=== PATIENT | female | born 1945 | race Caucasian/White ===

== ENCOUNTER 2016-08-10 19:19 | Outpatient (CLI) | payer MEDICARE, MEDICAID | END 2016-08-10 19:20 | disposition home or self-care (01) | DX: R60.0 Localized edema (principal) ==

== ENCOUNTER 2016-08-21 13:21 | Observation (INO) | payer MEDICARE, MEDICAID ==
[2016-08-21] MEDS ORDERED: IPRATROPIUM/ALBUTEROL 3 ML NEB INH STA (14:04)
[2016-08-21] MEDS ORDERED: DEXAMETHASONE 10 MG/ML VIAL IVP STA (14:05)
[2016-08-21] MEDS ORDERED: DEXAMETHASONE 10 MG/ML VIAL ONE (14:07)
[2016-08-21] MEDS ORDERED: IPRATROPIUM/ALBUTEROL 3 ML NEB INH ONE (14:12)
[2016-08-21] MEDS ORDERED: ALBUTEROL NEB 2.5 MG/3 ML INH STA ×2 (14:36→15:42)
[2016-08-21] MEDS ORDERED: ALBUTEROL NEB 2.5 MG/3 ML INH ONE ×2 (14:47→15:53)
[2016-08-21] MEDS ORDERED: cefTRIAXone 1 GM in SODIUM CHLORIDE 0.9% MINIBAG 100 ML IV STA (16:28)
[2016-08-21] MEDS ORDERED: cefTRIAXone 1 GM VIAL ONE (16:44)
[2016-08-21] MEDS ORDERED: SODIUM CHLORIDE FLUSH 0.9% 10 ML SYRINGE IVP PRN ×2 (16:58→18:14)
[2016-08-21] MEDS ORDERED: ACETAMINOPHEN 325 MG TABLET PO PRN ×2 (16:58→18:14)
[2016-08-21] MEDS ORDERED: ONDANSETRON ODT 4 MG TABLET TL PRN ×2 (16:58→18:14)
[2016-08-21] MEDS ORDERED: SODIUM CHLORIDE 0.9% 1,000 ML IV SCH (17:00)
[2016-08-21] MEDS: SODIUM CHLORIDE 0.9% 1,000 ML IV SCH (19:08)
[2016-08-21] MEDS ORDERED: BENZONATATE 100 MG CAPSULE PO PRN (19:18)
[2016-08-21] MEDS ORDERED: OLANZapine ODT 5 MG TABLET TL SCH (20:00)
[2016-08-21] MEDS: SODIUM CHLORIDE FLUSH 0.9% 10 ML SYRINGE IVP SCH (21:35)
[2016-08-21] MEDS: ATORVASTATIN 40 MG TABLET PO SCH (21:35)
[2016-08-21] MEDS: traZODone 50 MG TABLET PO SCH (21:35)
[2016-08-21] MEDS: OLANZapine ODT 5 MG TABLET TL SCH (21:35)
[2016-08-21] MEDS: guaiFENesin 600 MG TABLET PO SCH (21:35)
[2016-08-21] MEDS ORDERED: SODIUM CHLORIDE FLUSH 0.9% 10 ML SYRINGE IVP SCH (22:00)
[2016-08-22] MEDS: IPRATROPIUM/ALBUTEROL 3 ML NEB INH PRN ×5 (04:45→20:40)
[2016-08-22] MEDS: SODIUM CHLORIDE FLUSH 0.9% 10 ML SYRINGE IVP SCH ×3 (06:18→20:30)
[2016-08-22] MEDS: SODIUM CHLORIDE 0.9% 1,000 ML IV SCH ×2 (08:14→20:29)
[2016-08-22] MEDS ORDERED: POLYETHYLENE GLYCOL 3350 17 GM PACKET PO SCH (09:00)
[2016-08-22] MEDS ORDERED: TIOTROPIUM INHALER INH SCH (09:00)
[2016-08-22] MEDS ORDERED: lamoTRIgine 100 MG TABLET PO SCH (09:00)
[2016-08-22] MEDS ORDERED: ENOXAPARIN 30 MG/0.3 ML SYRINGE SUBQ SCH (09:00)
[2016-08-22] MEDS ORDERED: FAMOTIDINE 20 MG TABLET PO SCH (09:00)
[2016-08-22] MEDS: methylPREDNISolone SUCCINATE 125 MG/2 ML VIAL IVP SCH ×3 (09:01→20:29)
[2016-08-22] MEDS: SERTRALINE 50 MG TABLET PO SCH (09:05)
[2016-08-22] MEDS: FAMOTIDINE 20 MG TABLET PO SCH (09:06)
[2016-08-22] MEDS: MULTIVITAMIN W/MINERALS TABLET PO SCH (09:06)
[2016-08-22] MEDS: guaiFENesin 600 MG TABLET PO SCH ×2 (09:06→20:29)
[2016-08-22] MEDS: DIVALPROEX ER 250 MG TABLET PO SCH (09:06)
[2016-08-22] MEDS: lamoTRIgine 100 MG TABLET PO SCH (09:07)
[2016-08-22] MEDS: ENOXAPARIN 30 MG/0.3 ML SYRINGE SUBQ SCH (09:07)
[2016-08-22] MEDS: cefTRIAXone 2 GM in SODIUM CHLORIDE 0.9% MINIBAG 100 ML IV SCH (09:08)
[2016-08-22] MEDS: OLANZapine ODT 5 MG TABLET TL SCH (10:07)
[2016-08-22] MEDS: BUDESONIDE 0.5 MG/2 ML NEB INH SCH ×2 (11:10→20:40)
[2016-08-22] MEDS: POLYETHYLENE GLYCOL 3350 17 GM PACKET PO SCH (15:18)
[2016-08-22] MEDS: ATORVASTATIN 40 MG TABLET PO SCH (20:30)
[2016-08-22] MEDS: traZODone 50 MG TABLET PO SCH (20:30)
[2016-08-23] MEDS: SODIUM CHLORIDE 0.9% 1,000 ML IV SCH (06:45)
[2016-08-23] MEDS: methylPREDNISolone SUCCINATE 125 MG/2 ML VIAL IVP SCH (06:46)
[2016-08-23] MEDS: SODIUM CHLORIDE FLUSH 0.9% 10 ML SYRINGE IVP SCH (06:46)
[2016-08-23] MEDS ORDERED: TIOTROPIUM INHALER INH SCH (07:00)
[2016-08-23] MEDS: BUDESONIDE 0.5 MG/2 ML NEB INH SCH (08:11)
[2016-08-23] MEDS: IPRATROPIUM/ALBUTEROL 3 ML NEB INH PRN (08:11)
[2016-08-23] MEDS ORDERED: SENNA 8.6 MG TABLET PO SCH (09:00)
[2016-08-23] MEDS ORDERED: DOCUSATE SODIUM 250 MG CAPSULE PO SCH (09:00)
[2016-08-23] MEDS: cefTRIAXone 2 GM in SODIUM CHLORIDE 0.9% MINIBAG 100 ML IV SCH (09:20)
[2016-08-23] MEDS: ENOXAPARIN 30 MG/0.3 ML SYRINGE SUBQ SCH (09:22)
[2016-08-23] MEDS: POLYETHYLENE GLYCOL 3350 17 GM PACKET PO SCH (09:22)
[2016-08-23] MEDS: MULTIVITAMIN W/MINERALS TABLET PO SCH (09:23)
[2016-08-23] MEDS: lamoTRIgine 100 MG TABLET PO SCH (09:23)
[2016-08-23] MEDS: DIVALPROEX ER 250 MG TABLET PO SCH (09:23)
[2016-08-23] MEDS: FAMOTIDINE 20 MG TABLET PO SCH (09:24)
[2016-08-23] MEDS: guaiFENesin 600 MG TABLET PO SCH (09:24)
[2016-08-23] MEDS: SERTRALINE 50 MG TABLET PO SCH (09:24)
[2016-08-23] MEDS: OLANZapine ODT 5 MG TABLET TL SCH (09:24)
== END 2016-08-23 15:30 ==
DX: J44.0 Chronic obstructive pulmonary disease with (acute) lower respiratory infection (principal); J20.9 Acute bronchitis, unspecified; J44.1 Chronic obstructive pulmonary disease with (acute) exacerbation; F31.9 Bipolar disorder, unspecified; E78.2 Mixed hyperlipidemia; E55.9 Vitamin D deficiency, unspecified; N30.00 Acute cystitis without hematuria; R32 Unspecified urinary incontinence; R09.02 Hypoxemia; I10 Essential (primary) hypertension; Z87.891 Personal history of nicotine dependence; Z86.14 Personal history of Methicillin resistant Staphylococcus aureus infection
CPT/HCPCS: 36415; 71010; 71250; 80053; 80164; 81001; 83690; 83735; 83880; 85025; 87077; 87086; 87181; 87640; 94640; 96365; 96366; 96372; 96375; 96376; 99284; 99285; A9270; G0378; J1650; J7613; J7620; J7626

== ENCOUNTER 2016-08-30 14:59 | Outpatient (CLI) | payer MEDICARE, MEDICAID | END 2016-08-30 15:00 | disposition home or self-care (01) | DX: Z86.14 Personal history of Methicillin resistant Staphylococcus aureus infection (principal) ==

== ENCOUNTER 2016-08-30 15:22 | Outpatient (CLI) | payer MEDICARE, MEDICAID | END 2016-08-30 15:23 | disposition home or self-care (01) | DX: M17.11 Unilateral primary osteoarthritis, right knee (principal); M25.461 Effusion, right knee; Z86.14 Personal history of Methicillin resistant Staphylococcus aureus infection ==

== ENCOUNTER 2016-10-22 09:15 | Outpatient (CLI) | payer MEDICARE, MEDICAID | END 2016-10-22 09:16 | disposition critical access hospital (66) | DX: N39.0 Urinary tract infection, site not specified (principal); W07.XXXA Fall from chair, initial encounter; Y92.129 Unspecified place in nursing home as the place of occurrence of the external cause | CPT/HCPCS: A0425; A0429 ==

== ENCOUNTER 2016-10-22 09:32 | Emergency (ER) | payer MEDICARE, MEDICAID ==
[2016-10-22] MEDS ORDERED: ALBUTEROL NEB 2.5 MG/3 ML INH STA (09:53)
[2016-10-22] MEDS ORDERED: ALBUTEROL NEB 2.5 MG/3 ML INH ONE (10:24)
[2016-10-22] MEDS ORDERED: levoFLOXacin 250 MG TABLET PO STA (12:52)
[2016-10-22] MEDS ORDERED: predniSONE 20 MG TABLET PO STA (12:53)
[2016-10-22] MEDS ORDERED: predniSONE 20 MG TABLET ONE (13:17)
[2016-10-22] MEDS ORDERED: levoFLOXacin 250 MG TABLET PO ONE (13:17)
== END 2016-10-22 15:03 | disposition home or self-care (01) ==
DX: M25.561 Pain in right knee (principal); W01.0XXA Fall on same level from slipping, tripping and stumbling without subsequent striking against object, initial encounter; N30.00 Acute cystitis without hematuria; J44.1 Chronic obstructive pulmonary disease with (acute) exacerbation; J18.9 Pneumonia, unspecified organism; E78.00 Pure hypercholesterolemia, unspecified; Z87.891 Personal history of nicotine dependence
CPT/HCPCS: 71020; 71250; 73562; 81001; 87077; 87086; 87181; 94640; 99283; 99284; A9270; J7512; J7613

== ENCOUNTER 2016-10-31 22:30 | Inpatient (IN) | payer MEDICARE, MEDICAID ==
[2016-10-31] MEDS ORDERED: ACETAMINOPHEN 325 MG TABLET PO STA (22:54)
[2016-10-31] MEDS ORDERED: SODIUM CHLORIDE 0.9% 1,000 ML IV ONE (22:54)
[2016-10-31] MEDS ORDERED: IPRATROPIUM/ALBUTEROL 3 ML NEB INH STA (22:54)
[2016-10-31] MEDS ORDERED: ACETAMINOPHEN 500 MG TABLET PO ONE (23:02)
[2016-10-31] MEDS ORDERED: IPRATROPIUM/ALBUTEROL 3 ML NEB INH ONE ×2 (23:23→23:55)
[2016-11-01] MEDS ORDERED: PIPERACILLIN/TAZOBACTAM 3.375 GM in SODIUM CHLORIDE 0.9% MINIBAG 100 ML IV STA (00:20)
[2016-11-01] MEDS ORDERED: SODIUM CHLORIDE 0.9% MINIBAG 100 ML IV ONE (00:33)
[2016-11-01] MEDS ORDERED: VANCOMYCIN INJ 1 GM in SODIUM CHLORIDE 0.9% 250 ML IV STA (00:51)
[2016-11-01] MEDS ORDERED: VANCOMYCIN 1 GM VIAL ONE (01:06)
[2016-11-01] MEDS ORDERED: ONDANSETRON 4 MG/2 ML VIAL IVP PRN (02:03)
[2016-11-01] MEDS ORDERED: ALBUTEROL NEB 2.5 MG/3 ML INH PRN (02:34)
[2016-11-01] MEDS ORDERED: IOPAMIDOL-300 100 ML VIAL IVP ONE (02:50)
[2016-11-01] MEDS ORDERED: SODIUM CHLORIDE 0.9% 1,000 ML IV SCH ×2 (03:00)
[2016-11-01] MEDS ORDERED: SODIUM CHLORIDE 0.9% 1,000 ML IV ONE (03:03)
[2016-11-01] MEDS: IPRATROPIUM/ALBUTEROL 3 ML NEB INH SCH ×6 (03:10→21:35)
[2016-11-01] MEDS: SODIUM CHLORIDE 0.9% 1,000 ML IV SCH ×2 (03:38→14:15)
[2016-11-01] MEDS: SODIUM CHLORIDE FLUSH 0.9% 10 ML SYRINGE IVP PRN (03:39)
[2016-11-01] MEDS ORDERED: A & D OINTMENT 5 GM PACKET TOP ONE (04:03)
[2016-11-01] MEDS: PIPERACILLIN/TAZOBACTAM 4.5 GM in SODIUM CHLORIDE 0.9% MINIBAG 100 ML IV SCH ×3 (06:07→18:05)
[2016-11-01] MEDS: methylPREDNISolone SUCCINATE 40 MG/ML VIAL IVP SCH ×3 (06:07→21:37)
[2016-11-01] MEDS: SODIUM CHLORIDE FLUSH 0.9% 10 ML SYRINGE IVP SCH ×3 (06:08→21:37)
[2016-11-01] MEDS ORDERED: VANCOMYCIN PER PHARMACY 1 GM in SODIUM CHLORIDE 0.9% 250 ML IV PRN (06:38)
[2016-11-01] MEDS ORDERED: VANCOMYCIN PER PHARMACY 1 GM in SODIUM CHLORIDE 0.9% 250 ML IV SCH (07:00)
[2016-11-01] MEDS: ENOXAPARIN 40 MG/0.4 ML SYRINGE SUBQ SCH (09:57)
[2016-11-01] MEDS: POLYETHYLENE GLYCOL 3350 17 GM PACKET PO SCH (09:58)
[2016-11-01] MEDS: FAMOTIDINE 20 MG/50 ML 50 ML IV SCH (09:58)
[2016-11-01] MEDS ORDERED: VANCOMYCIN INJ 1 GM in SODIUM CHLORIDE 0.9% 250 ML IV SCH (19:00)
[2016-11-01] MEDS ORDERED: clonazePAM 0.5 MG TABLET PO PRN (21:00)
[2016-11-01] MEDS: lamoTRIgine 100 MG TABLET PO SCH (21:36)
[2016-11-01] MEDS: DOCUSATE SODIUM 100 MG CAPSULE PO PRN (21:36)
[2016-11-01] MEDS: traZODone 50 MG TABLET PO PRN (21:36)
[2016-11-01] MEDS: DIVALPROEX DR 250 MG TABLET PO SCH (21:37)
[2016-11-02] MEDS: SODIUM CHLORIDE 0.9% 1,000 ML IV SCH ×2 (00:01→06:51)
[2016-11-02] MEDS: PIPERACILLIN/TAZOBACTAM 4.5 GM in SODIUM CHLORIDE 0.9% MINIBAG 100 ML IV SCH ×3 (00:02→12:12)
[2016-11-02] MEDS: IPRATROPIUM/ALBUTEROL 3 ML NEB INH SCH ×6 (01:32→20:53)
[2016-11-02] MEDS: methylPREDNISolone SUCCINATE 40 MG/ML VIAL IVP SCH ×3 (05:48→21:59)
[2016-11-02] MEDS: SODIUM CHLORIDE FLUSH 0.9% 10 ML SYRINGE IVP SCH ×3 (05:48→20:13)
[2016-11-02] MEDS: POLYETHYLENE GLYCOL 3350 17 GM PACKET PO SCH (09:56)
[2016-11-02] MEDS: ENOXAPARIN 40 MG/0.4 ML SYRINGE SUBQ SCH (09:56)
[2016-11-02] MEDS: FAMOTIDINE 20 MG/50 ML 50 ML IV SCH (09:56)
[2016-11-02] MEDS: THIAMINE 100 MG TABLET PO SCH (09:57)
[2016-11-02] MEDS: SENNA 8.6 MG TABLET PO SCH (09:57)
[2016-11-02] MEDS: SERTRALINE 50 MG TABLET PO SCH (09:57)
[2016-11-02] MEDS: DIVALPROEX DR 250 MG TABLET PO SCH ×2 (09:57→20:16)
[2016-11-02] MEDS: MULTIVITAMIN TABLET PO SCH (09:57)
[2016-11-02] MEDS: DOCUSATE SODIUM 250 MG CAPSULE PO SCH (09:58)
[2016-11-02] MEDS: DOCUSATE SODIUM 100 MG CAPSULE PO PRN ×2 (09:58→20:16)
[2016-11-02] MEDS: LACTULOSE 10 GM /15 ML UDC PO SCH ×2 (09:58→20:23)
[2016-11-02] MEDS: NEUTRA-PHOS 250 MG TABLET PO SCH ×2 (10:14→12:12)
[2016-11-02] MEDS ORDERED: NEUTRA-PHOS 250 MG TABLET PO ONE (11:24)
[2016-11-02] MEDS: ACETAMINOPHEN 325 MG TABLET PO PRN ×2 (12:12→22:25)
[2016-11-02] MEDS: ceFAZolin 1 GM in SODIUM CHLORIDE 0.9% MINIBAG 100 ML IV SCH (19:23)
[2016-11-02] MEDS: ATORVASTATIN 40 MG TABLET PO SCH (20:16)
[2016-11-02] MEDS: lamoTRIgine 100 MG TABLET PO SCH (20:16)
[2016-11-02] MEDS: OLANZapine ODT 5 MG TABLET TL SCH (20:16)
[2016-11-02] MEDS: SODIUM CHLORIDE FLUSH 0.9% 10 ML SYRINGE IVP PRN (22:00)
[2016-11-02] MEDS: traZODone 50 MG TABLET PO PRN (22:25)
[2016-11-03] MEDS: ceFAZolin 1 GM in SODIUM CHLORIDE 0.9% MINIBAG 100 ML IV SCH ×2 (05:18→17:19)
[2016-11-03] MEDS: SODIUM CHLORIDE FLUSH 0.9% 10 ML SYRINGE IVP SCH ×3 (05:19→17:18)
[2016-11-03] MEDS: methylPREDNISolone SUCCINATE 40 MG/ML VIAL IVP SCH ×2 (05:58→14:33)
[2016-11-03] MEDS: IPRATROPIUM/ALBUTEROL 3 ML NEB INH SCH ×5 (06:10→21:00)
[2016-11-03] MEDS: MULTIVITAMIN TABLET PO SCH (07:39)
[2016-11-03] MEDS: THIAMINE 100 MG TABLET PO SCH (08:48)
[2016-11-03] MEDS: SENNA 8.6 MG TABLET PO SCH (08:48)
[2016-11-03] MEDS: DIVALPROEX DR 250 MG TABLET PO SCH ×2 (08:48→21:29)
[2016-11-03] MEDS: DOCUSATE SODIUM 100 MG CAPSULE PO PRN (08:48)
[2016-11-03] MEDS: ENOXAPARIN 40 MG/0.4 ML SYRINGE SUBQ SCH (08:49)
[2016-11-03] MEDS: FAMOTIDINE 20 MG/50 ML 50 ML IV SCH (08:49)
[2016-11-03] MEDS: SERTRALINE 50 MG TABLET PO SCH (08:49)
[2016-11-03] MEDS: POLYETHYLENE GLYCOL 3350 17 GM PACKET PO SCH (08:49)
[2016-11-03] MEDS: DOCUSATE SODIUM 250 MG CAPSULE PO SCH (08:52)
[2016-11-03] MEDS: amLODIPine 5 MG TABLET PO SCH (17:57)
[2016-11-03] MEDS: SODIUM CHLORIDE FLUSH 0.9% 10 ML SYRINGE IVP PRN (18:00)
[2016-11-03] MEDS: ATORVASTATIN 40 MG TABLET PO SCH (21:29)
[2016-11-03] MEDS: lamoTRIgine 100 MG TABLET PO SCH (21:29)
[2016-11-03] MEDS: OLANZapine ODT 5 MG TABLET TL SCH (21:30)
[2016-11-03] MEDS: guaiFENesin 600 MG TABLET PO SCH (21:32)
[2016-11-04] MEDS: SODIUM CHLORIDE FLUSH 0.9% 10 ML SYRINGE IVP PRN ×4 (00:19→08:21)
[2016-11-04] MEDS: IPRATROPIUM/ALBUTEROL 3 ML NEB INH SCH ×4 (01:45→11:30)
[2016-11-04] MEDS: ceFAZolin 1 GM in SODIUM CHLORIDE 0.9% MINIBAG 100 ML IV SCH (05:42)
[2016-11-04] MEDS: SODIUM CHLORIDE FLUSH 0.9% 10 ML SYRINGE IVP SCH ×2 (05:43→13:48)
[2016-11-04] MEDS ORDERED: predniSONE 20 MG TABLET PO SCH (08:00)
[2016-11-04] MEDS: ENOXAPARIN 40 MG/0.4 ML SYRINGE SUBQ SCH (08:20)
[2016-11-04] MEDS: FAMOTIDINE 20 MG/50 ML 50 ML IV SCH (08:20)
[2016-11-04] MEDS: POLYETHYLENE GLYCOL 3350 17 GM PACKET PO SCH (08:20)
[2016-11-04] MEDS: DOCUSATE SODIUM 250 MG CAPSULE PO SCH (08:21)
[2016-11-04] MEDS: DIVALPROEX DR 250 MG TABLET PO SCH (08:21)
[2016-11-04] MEDS: amLODIPine 5 MG TABLET PO SCH (08:21)
[2016-11-04] MEDS: MULTIVITAMIN TABLET PO SCH (08:21)
[2016-11-04] MEDS: SENNA 8.6 MG TABLET PO SCH (08:21)
[2016-11-04] MEDS: guaiFENesin 600 MG TABLET PO SCH (08:22)
[2016-11-04] MEDS: THIAMINE 100 MG TABLET PO SCH (08:22)
[2016-11-04] MEDS: SERTRALINE 50 MG TABLET PO SCH (09:32)
[2016-11-04] MEDS: LACTULOSE 10 GM /15 ML UDC PO SCH (09:32)
[2016-11-04] MEDS ORDERED: NEUTRA-PHOS 250 MG TABLET PO SCH (13:30)
[2016-11-04] MEDS ORDERED: amLODIPine 5 MG TABLET PO SCH (18:00)
== END 2016-11-04 16:08 | disposition home or self-care (01) | DRG 871 ==
DX: A41.9 Sepsis, unspecified organism (principal); R09.02 Hypoxemia; J44.9 Chronic obstructive pulmonary disease, unspecified; J96.01 Acute respiratory failure with hypoxia; J96.02 Acute respiratory failure with hypercapnia; N39.0 Urinary tract infection, site not specified; J44.1 Chronic obstructive pulmonary disease with (acute) exacerbation; B96.20 Unspecified Escherichia coli [E. coli] as the cause of diseases classified elsewhere; G40.909 Epilepsy, unspecified, not intractable, without status epilepticus; K59.00 Constipation, unspecified; I15.8 Other secondary hypertension; T38.0X5A Adverse effect of glucocorticoids and synthetic analogues, initial encounter; Y92.239 Unspecified place in hospital as the place of occurrence of the external cause; F31.9 Bipolar disorder, unspecified; E78.5 Hyperlipidemia, unspecified; Z16.24 Resistance to multiple antibiotics; Z85.3 Personal history of malignant neoplasm of breast; Z87.891 Personal history of nicotine dependence

== ENCOUNTER 2017-05-09 14:14 | Outpatient (CLI) | payer MEDICARE, MEDICAID ==
--- NOTE | 2017-05-11 12:29 | XRAY Report ---
LEFT FOOT: 05/09/2017 COMPARISON: None. INDICATION: Pain and swelling. TECHNIQUE: Three views of the left foot. FINDINGS: Anatomic alignment. No acute bone findings. There are [id number] degenerative changes of the 1st tarsometatarsal joint. There are mild degenerative changes of the proximal interphalangeal joints. No appreciable soft tissue swelling. IMPRESSION: [id number] DEGENERATIVE CHANGES OF THE 1ST TARSOMETATARSAL JOINT. MILD DEGENERATIVE CHANGE OF THE PROXIMAL INTERPHALANGEAL JOINTS. JOB #: [id number] EXT JOB #: [id number] MTDD
== END 2017-05-09 14:15 | disposition home or self-care (01) ==
LOC: DI 14:14
PROVIDERS: ATTEND Podiatrist
DX: M19.072 Primary osteoarthritis, left ankle and foot (principal)

== ENCOUNTER 2017-10-05 12:41 | Outpatient (CLI) | payer MEDICARE, MEDICAID ==
--- NOTE | 2017-10-05 14:11 | CT Report ---
CT CHEST WITHOUT CONTRAST: 10/05/2017 CLINICAL INDICATION: Followup pulmonary nodule. COMPARISON: 11/01/2016. TECHNIQUE: Axial CT images of the chest were obtained without intravenous contrast. FINDINGS: The heart and great vessels demonstrate atherosclerotic calcification. No hilar or mediastinal lymphadenopathy is appreciated, given the lack of IV contrast. The lungs demonstrate dependent atelectasis. The previously noted 5 mm nodule in the posterior right lower lobe has resolved. No new pulmonary nodule or mass lesion is appreciated. No effusion or pneumothorax is present. Osseous structures demonstrate degenerative changes. Limited evaluation of the upper abdominal structures demonstrates normal adrenal glands. IMPRESSION: RESOLUTION OF PREVIOUSLY SEEN NODULE IN THE POSTERIOR RIGHT LOWER LOBE. In accordance with CT protocol optimization, one or more of the following dose reduction techniques were utilized for this exam: automated exposure control, adjustment of mA and/or KV based on patient size, or use of iterative reconstructive technique. TD: 10/05/2017 14:10
== END 2017-10-05 12:42 | disposition home or self-care (01) ==
LOC: DI 12:41
PROVIDERS: ATTEND Internal Medicine
DX: R91.1 Solitary pulmonary nodule (principal)
CPT/HCPCS: 71250

== ENCOUNTER 2017-11-23 22:29 | Outpatient (CLI) | payer MEDICARE, MEDICAID | END 2017-11-23 22:30 | disposition critical access hospital (66) | LOC: EMS 22:29 | PROVIDERS: ATTEND Surgery | DX: R50.9 Fever, unspecified (principal); R05 Cough | CPT/HCPCS: A0425; A0429 ==

== ENCOUNTER 2017-11-23 22:50 | Inpatient (IN) | payer MEDICARE, MEDICAID ==
[2017-11-23] MEDS ORDERED: SODIUM CHLORIDE 0.9% 1,000 ML IV ONE (22:56)
[2017-11-23] MEDS ORDERED: ACETAMINOPHEN 1,000 MG/100 ML 100 ML IV STA (22:56)
[2017-11-23 23:25] LABS: BASOPHILS # (AUTO) 0.1 10^3/uL (0.0-0.1); BASOPHILS % (AUTO) 0.4 %; EOSINOPHILS # (AUTO) 0.1 10^3/uL (0.0-0.7); EOSINOPHILS % (AUTO) 0.4 %; HGB - HEMOGLOBIN 13.6 g/dL (12.0-16.0); MEAN CORPUSCULAR HEMOGLOBIN 29.6 pg (27.0-31.0); MEAN CORPUSCULAR HGB CONC 32.4 g/dL (32.0-36.0); MEAN CORPUSCULAR VOLUME 91.4 fL (81.0-99.0); MONOCYTES # (AUTO) 0.6 10^3/uL (0.0-1.0); MONOCYTES % (AUTO) 4.3 %; NEUTROPHILS # (AUTO) 12.8 10^3/uL (1.5-6.6); NEUTROPHILS % (AUTO) 87.9 %; PLT - PLATELET COUNT 151 10^3/uL (130-450); RED CELL DISTRIBUTION WIDTH 15.7 % (12.0-15.0); WHITE BLOOD COUNT 14.6 x10^3/uL (4.8-10.8)
[2017-11-23] MEDS ORDERED: PIPERACILLIN/TAZOBACTAM 3.375 GM in SODIUM CHLORIDE 0.9% MINIBAG 100 ML IV STA (23:33)
[2017-11-23 23:37] LABS: ALBUMIN 4.4 g/dL (3.2-5.5); ALBUMIN/GLOBULIN RATIO 1.5 (1.0-2.2); BILIRUBIN,TOTAL 0.5 mg/dL (0.2-1.0); CALCIUM 9.5 mg/dL (8.5-10.3); CREATININE 0.9 mg/dL (0.4-1.0); TOTAL PROTEIN 7.3 g/dL (6.7-8.2)
--- NOTE | 2017-11-23 23:41 | XRAY Report ---
EXAM: CHEST RADIOGRAPHY EXAM DATE: 11/23/2017 11:27 PM. CLINICAL HISTORY: Fever, cough. COMPARISON: 10/31/2016. TECHNIQUE: 1 view. FINDINGS: Lungs/Pleura: Possible pulmonary vascular congestion. Interstitial infiltrate also possible. No alveo lar consolidation or pleural effusion seen. No pneumothorax. Mediastinum: Rotated. Within exam limitations, heart appears mildly enlarged. Other: Status post left mastectomy. Degenerative joint disease and bony proliferation about the shoul ders. IMPRESSION: 1. Rotated exam with mild cardiomegaly and possible pulmonary vascular congestion. 2. Mild interstitial infiltrate also possible. [facility] Referring Provider Line: [phone] SITE ID: [id number]
--- NOTE | 2017-11-23 23:41 | XRAY Preliminary Report ---
Exam: XR CHEST 1 VIEW X-RAY IMPRESSION: 1. Rotated exam with mild cardiomegaly and possible pulmonary vascular congestion. 2. Mild interstitial infiltrate also possible. [facility] SITE ID: [id number]
[2017-11-23 23:47] LABS: BILIRUBIN,URINE NEGATIVE (NEGATIVE); GLUCOSE, URINE (UA) NEGATIVE (NEGATIVE); KETONES,URINE (UA) NEGATIVE (NEGATIVE); LEUKOCYTE ESTERASE, URINE NEGATIVE (NEGATIVE); NITRITE,URINE NEGATIVE (NEGATIVE); OCCULT BLOOD,URINE SMALL (NEGATIVE); PROTEIN,URINE 30 mg/dL (NEGATIVE); UROBILINOGEN,URINE 0.2 (NORMAL) E.U./dL (NORMAL)
[2017-11-23 23:48] LABS: CLARITY,URINE CLEAR (CLEAR)
[2017-11-23 23:53] LABS: BACTERIA,URINE Rare /HPF (None Seen); SQUAMOUS EPITHELIAL CELL,UR MOD Squamous (<= Few)
--- NOTE | 2017-11-24 00:36 | ED Physician Documentation ---
History of Present Illness - Stated complaint Stated Complaint: SOA - Chief complaint Chief Complaint: Resp - History obtained from History obtained from: EMS - History of Present Illness Timing: Today - Additonal information Additional information: Patient is a 72 year old demented patient who is was brought in by ems for altered mental status. according to ems, the [facility] at the [facility] stated that the patient was more confused than normal and patient had a productive cough. ems was contacted and the when they arrived patient was hypoxic, febrile to 103 and with a productive cough. 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 : Incontinence HEENT: Other Psych: Bipolar disorder Musculoskeletal: None Derm: None - Past Surgical History Past Surgical History: Yes /PHOTOGRAPHIC EQUIPMENT ASSEMBLER: Mastectomy - Present Medications Home Medications: Ambulatory Orders Medication Instructions Recorded Confirmed Albuterol Sulfate [Proair Hfa 2 puffs INH Q4H PRN #1 inhaler 03/30/16 11/24/17 Inhaler] Atorvastatin Calcium [Lipitor] 40 mg PO DAILY 03/30/16 11/24/17 Ergocalciferol [Vitamin D2] 50,000 unit PO TU 03/30/16 11/24/17 Erythromycin Base [Erythromycin 1 applic OP TID PRN 03/30/16 11/24/17 Ophthalmic Ointment] Lactulose [Generlac] 20 gm PO DAILY 03/30/16 11/24/17 Mirabegron [Myrbetriq] 25 mg PO DAILY 03/30/16 11/24/17 Multivit with Calcium,Iron,Min 1 each PO DAILY 03/30/16 11/24/17 [Multiple Vitamins For Women] Olanzapine [Zyprexa] 20 mg PO DAILY PM 03/30/16 11/24/17 Thiamine [Vitamin B-1] 100 mg PO DAILY 03/30/16 11/24/17 Tiotropium [place] [Spiriva] 18 mcg IH DAILY 03/30/16 11/24/17 lamoTRIgine [LaMICtal] 25 mg PO BID 03/30/16 11/24/17 traZODone [Desyrel] 25 - 50 mg PO QPM PRN 03/30/16 11/24/17 Ascorbic Acid [Vitamin C] 2,000 mg PO DAILY 11/01/16 11/24/17 Cranberry Fruit Concentrate 900 mg PO QPM 11/01/16 11/24/17 [Cranberry] Divalproex Dr [Depakote Dr] 500 mg PO BID 11/01/16 11/24/17 Mineral Oil/Hydrophil Petrolat 1 applic TOP PRN PRN 11/01/16 11/24/17 [Aquaphor Ointment] Vitamin E Acetate [Vitamin E] 400 unit PO DAILY 11/01/16 11/24/17 Docusate Sodium 250Mg Capsule 250 - 500 mg PO DAILY #30 capsule 11/04/16 [Colace 250Mg Capsule] Polyethylene Glycol 3350 [Miralax] 17 gm PO DAILY #30 packet 11/04/16 11/24/17 Acetaminophen 500 mg PO PRN PRN 11/24/17 Amlodipine Besylate 10 mg PO ACHS 11/24/17 Aspirin 81 mg PO DAILY 11/24/17 Fluticasone/Salmeterol [Advair 1 puffs INH BID 11/24/17 250-50 Diskus] Godfrey-3/Dha/Epa/Fish Oil [Fish Oil 1,000 mg PO TID 11/24/17 11/24/17 1,000 mg Softgel] - Allergies Allergies/Adverse Reactions: Allergies Allergy/AdvReac Type Severity Reaction Status Date / Time diazepam Allergy Unknown Unknown Verified 11/23/17 22:57 hydrocodone Allergy Unknown Unknown Verified 11/23/17 22:57 lithium AdvReac Mild Unknown Verified 11/23/17 22:57 - Social History Does the pt smoke?: No Smoking Status: Never smoker Does the pt drink ETOH?: No Does the pt have substance abuse?: No - Immunizations Immunizations are current?: Yes - POLST Patient has POLST: Yes PD ED PE NORMAL - Vitals Vital signs reviewed: Yes - Neck Neck: No JVD - Abdomen Abdomen: Non distended - Derm Derm: No rash - Extremities Extremities: No edema PD ED PE EXPANDED - General General: Disheveled, poorly kept, Other (ill appearing) - HEENT HEENT: Dry mucous membranes - Cardiac Cardiac: Tachy - Respiratory Respiratory: Accessory mm use, Rhonchi - GCS Eye Opening: To Pain Motor: Localizes to Pain Verbal: Confused Total: 11 Results - Vitals Vitals: Vital Signs - 24 hr 11/23/17 11/23/17 11/24/17 22:51 23:19 00:32 Temperature 37.3 C 38.2 C H Heart Rate 118 H 109 H Respiratory 25 H 25 H Rate Blood Pressure 162/101 H 138/96 H O2 Saturation 91 L 95 Oxygen O2 Source Nasal cannula Oxygen Flow Rate 5 - EKG (time done) 2314 Rate: Rate (enter#) (122) Rhythm: Sinus tachycardia [place]: Anterior hemiblock Intervals: RBBB 2353 Rate: Rate (enter#) (113) Rhythm: Sinus tachycardia [place]: LAD, Anterior hemiblock Intervals: RBBB QRS: LVH Ischemia: ST depression Compare to prior EKG: Unchanged from prior EKG - Labs Labs: Laboratory Tests 11/23/17 11/23/17 11/23/17 23:15 23:15 23:15 WBC 14.6 H RBC 4.60 Hgb 13.6 Hct 42.0 MCV 91.4 MCH 29.6 MCHC 32.4 RDW 15.7 H Plt Count 151 MPV 7.0 L Neut # 12.8 H Lymph # 1.0 L [place] # 0.6 Eos # 0.1 Baso # 0.1 Absolute Nucleated RBC 0.00 Nucleated RBC % 0.0 Sodium 140 Potassium 4.2 Chloride 102 Carbon Dioxide 26 Anion Gap 12.0 BUN 23 H Creatinine 0.9 Estimated GFR (MDRD) 61 L Glucose 191 H Lactic Acid Calcium 9.5 Total Bilirubin 0.5 AST 24 ALT 14 Alkaline Phosphatase 80 Troponin I < 0.04 B-Natriuretic Peptide Total Protein 7.3 Albumin 4.4 Globulin 2.9 Albumin/Globulin Ratio 1.5 Lipase 22 Urine Color Urine Clarity Urine pH Ur Specific Jesse Urine Protein Urine Glucose (UA) Urine Ketones Urine Occult Blood Urine Nitrite Urine Bilirubin Urine Urobilinogen Ur Leukocyte Esterase Urine RBC Urine WBC Ur Squamous Epith Cells Urine Bacteria Ur Microscopic Review Urine Culture Comments Influenza A (Rapid) Influenza B (Rapid) 11/23/17 11/23/17 11/23/17 23:15 23:15 23:23 WBC RBC Hgb Hct MCV MCH MCHC RDW Plt Count MPV Neut # Lymph # [place] # Eos # Baso # Absolute Nucleated RBC Nucleated RBC % Sodium Potassium Chloride Carbon Dioxide Anion Gap BUN Creatinine Estimated GFR (MDRD) Glucose Lactic Acid 2.1 Calcium Total Bilirubin AST ALT Alkaline Phosphatase Troponin I B-Natriuretic Peptide 72 Total Protein Albumin Globulin Albumin/Globulin Ratio Lipase Urine Color YELLOW Urine Clarity CLEAR Urine pH 6.0 Ur Specific Jesse 1.020 Urine Protein 30 H Urine Glucose (UA) NEGATIVE Urine Ketones NEGATIVE Urine Occult Blood SMALL H Urine Nitrite NEGATIVE Urine Bilirubin NEGATIVE Urine Urobilinogen 0.2 (NORMAL) Ur Leukocyte Esterase NEGATIVE Urine RBC 6-10 H Urine WBC 0-3 Ur Squamous Epith Cells MOD Squamous H Urine Bacteria Rare Ur Microscopic Review INDICATED Urine Culture Comments NOT INDICATED Influenza A (Rapid) Influenza B (Rapid) 11/24/17 00:19 WBC RBC Hgb Hct MCV MCH MCHC RDW Plt Count MPV Neut # Lymph # [place] # Eos # Baso # Absolute Nucleated RBC Nucleated RBC % Sodium Potassium Chloride Carbon Dioxide Anion Gap BUN Creatinine Estimated GFR (MDRD) Glucose Lactic Acid Calcium Total Bilirubin AST ALT Alkaline Phosphatase Troponin I B-Natriuretic Peptide Total Protein Albumin Globulin Albumin/Globulin Ratio Lipase Urine Color Urine Clarity Urine pH Ur Specific Jesse Urine Protein Urine Glucose (UA) Urine Ketones Urine Occult Blood Urine Nitrite Urine Bilirubin Urine Urobilinogen Ur Leukocyte Esterase Urine RBC Urine WBC Ur Squamous Epith Cells Urine Bacteria Ur Microscopic Review Urine Culture Comments Influenza A (Rapid) Negative Influenza B (Rapid) Negative - Rads (name of study) chest x-ray Radiology: Final report received (pulmonary edema with possible infiltrate) PD MEDICAL DECISION MAKING - ED course Complexity details: reviewed old records, reviewed results, re-evaluated patient , considered differential, d/w economic consultant ED course: Patient was seen and examined at bedside. IV access was gained and labs were drawn. ekg was performed and showed sinus tach and diffuse global ischemia. cultures were drawn and patient was treated with IV acetaminophen and fluid bolus. Urine was collected and chest x-ray was ordered. Patient's heart rate improved slightly. repeat ekg and the initial ekg both were unchanged from patient's ekg a year ago. chest x-ray showed possible infiltrate. patient was started on zosyn. Hospitalist was contacted and the case was discussed with her. patient was admitted for further evaluation and care. - Critical Care Time(min): 30 Time Includes: Direct patient care Data interpretation: Labs, Pulse ox, CXR, Prior EKG, Cardiac output Departure - Departure Disposition: [facility] DC/Xfer Clinical Impression: SIRS (systemic inflammatory response syndrome), Pneumonia Condition: Stable
[2017-11-24] MEDS ORDERED: ONDANSETRON 4 MG/2 ML VIAL IVP PRN (01:22)
[2017-11-24] MEDS ORDERED: ACETAMINOPHEN 325 MG TABLET PO PRN (01:22)
[2017-11-24] MEDS ORDERED: MAGNESIUM HYDROXIDE 2,400 MG/30 ML UDC PO PRN (01:29)
[2017-11-24] MEDS ORDERED: METHYLNALTREXONE 12 MG/0.6 ML VIAL SUBQ ONE (01:29)
[2017-11-24] MEDS ORDERED: BISACODYL 10 MG SUPP PR PRN (01:30)
[2017-11-24] MEDS ORDERED: SODIUM CHLORIDE 0.9% 1,000 ML IV SCH (02:00)
[2017-11-24] MEDS: FAMOTIDINE 20 MG/50 ML 50 ML IV SCH ×3 (03:02→22:53)
[2017-11-24] MEDS: TOBRAMYCIN 0.3% OPHTH DROPS 5 ML EACHEYE SCH ×10 (03:07→22:55)
[2017-11-24] MEDS: IPRATROPIUM/ALBUTEROL 3 ML NEB INH SCH ×4 (03:35→22:30)
[2017-11-24] MEDS: BUDESONIDE 0.5 MG/2 ML NEB INH SCH ×3 (03:35→22:30)
--- NOTE | 2017-11-24 04:09 | HISTORY & PHYSICAL EXAMINATION ---
DATE OF SERVICE: 11/24/2017 Physician: Adriana Swan MD CHIEF COMPLAINT: Fever. SOURCE OF HISTORY: Patient on admission was not able to meaningfully interact. She was somnolent. I obtained sign-out from the ER, reviewed prior medical records, and discussed the case with patient's power of base brander, sister Eliza. HISTORY OF PRESENT ILLNESS: Patient is a 72-year-old white female with multiple past medical problems including history of bipolar disorder, on multiple psychoactive medications. Her sister reports that she has bipolar disease for over 40 years. She is under the care of the psychiatrist, Dr. Sandoval, who manages her psychoactive medications. She does have extrapyramidal side effects, manifesting as tardive dyskinesia. She resides at [facility] living [facility]. Patient's sister reported that the last time she saw her was over the weekend, a few days ago. At that time, patient could talk and walk and was in her usual state of health. She did have a cough, however, and some respiratory symptoms. Sister also reported that patient is chronically constipated, and for that, she will have a colonoscopy next week. She was admitted last time to [facility] in July 2017, at which time she was treated for respiratory infection. Per ER report, patient was brought in from assisted living facility with the chief complaint of fever and altered mental status. Per the facility personnel, she was more lethargic than usual. She had a cough. Her oxygen saturation was low at 91% on room air. She arrived showing septic physiology. Temperature was 104 Fahrenheit per EMS. Heart rate was around 120. Blood pressure was 120/60. The workup on admission showed elevated white blood cell count at 14. The urinalysis showed protein, small occult blood and squamous epithelial cells; did not look infected. Influenza screen was negative. Chemistry panel showed glucose 190 and BUN of 23. Chest x -ray showed questionable interstitial infiltrate. EKG was abnormal with fascicular blocks, however, not much changed compared to previous EKG. Interviewing the patient, she could not provide any history. She was noted with wet cough, abnormal lung exam, and right eye purulent discharge. She had a distended abdomen. She was somnolent and had rhythmic tongue movements consistent with tardive dyskinesia. PAST MEDICAL HISTORY 1. History of seizure. 2. Hypertension. 3. COPD. 4. History of pulmonary nodule seen on previous hospital admission in October 2016. 5. Dyslipidemia. 6. Depression/anxiety/bipolar disorder. 7. Urinary tract infection and history of urinary incontinence. 8. History of breast cancer, status post mastectomy. OUTPATIENT MEDICATIONS: Current list is being reconciled. Patient was on 1. Trazodone. 2. Lamictal. 3. Vitamin E. 4. Spiriva. 5. Thiamine. 6. MiraLax. 7. Zyprexa. 8. Multivitamin. 9. Myrbetriq. 10. Lactulose. 11. Erythromycin ophthalmic ointment. 12. Vitamin D. 13. Docusate. 14. Depakote. 15. Cranberry concentrate. 16. Lipitor. 17. Vitamin C. 18. ProAir. 19. Advair. 20. Aspirin. 21. Amlodipine. 22. Tylenol. SOCIAL HISTORY: Patient resides at assisted living facility, [facility]. She has a history of smoking; currently does not smoke. FAMILY HISTORY: The patient could not provide. REVIEW OF SYSTEMS: The patient could not provide. I attempted 12-point review. She denied all complaints. She was somnolent when I admitted her. CODE STATUS: The patient arrived with a POLST form, which was contradictory. Section A listed DO NOT RESUSCITATE. However, section B listed FULL INTERVENTIONS INCLUDING INTUBATION AND CARDIOVERSION. Obviously, the two would be somewhat contradictory, at least without any further direction. This was discussed with patient's sister, and I spent about 20 minutes discussing code status and goals of care. Accordingly, the sister, who is the power of base brander, explained that she intended for patient to have a DO NOT RESUSCITATE CODE status when she filled out this form. That is consistent with patient's previous wishes as well. Therefore, patient should be a DO NOT RESUSCITATE/DO NOT INTUBATE code status, NO CARDIOVERSION AND NO AGGRESSIVE INTERVENTION; however, reasonable therapy such as antibiotics , supportive care, close monitoring and addressing acute and active issues are acceptable. PHYSICAL EXAMINATION VITAL SIGNS: See listed above at history of present illness. GENERAL: Patient is a well-developed, elderly female who appeared acutely and chronically ill. RESPIRATORY: Increased work of breathing, rhonchi, crackles and wet cough. NEUROLOGIC: Tardive dyskinesia with rhythmic tongue and facial movements, lethargic with global encephalopathy. Moved all 4 extremities. Followed simple 1-step commands. PSYCHIATRIC: Lethargic, arousable, cooperative. CARDIOVASCULAR: S1, S2, tachycardia. I could not hear a murmur, rub or gallop in the setting of transmitted airway sounds. ABDOMEN: Distended, nontender. Bowel tones are hypoactive. LYMPH: No lymphedema. MUSCULOSKELETAL: Truncal obesity, thin extremities with decreased muscle mass and muscle tone. SKIN: Mild pallor, no jaundice. ASSESSMENT AND PLAN/ACTIVE ISSUES 1. Sepsis. Most likely diagnosis is aspiration. Chest x-ray does not show obvious infiltrate; however, patient's clinical symptoms and lung exam would be most consistent with a respiratory infection. Given her extensive psychoactive medication use and tardive dyskinesia with tongue and facial movements, she would have high risk of aspiration. To support that, her sister actually reported that recently patient had been often somnolent on the medications she takes. In addition, she was admitted in the past with fever and similar presentation. Last, she was admitted in July to [facility]. It is highly likely that she aspirates in the setting of altered mental status and psychoactive medication use. On admission, she fulfilled septic physiology, source being respiratory. Urine did not look infected. 2. DO NOT RESUSCITATE CODE STATUS. This was discussed with patient's sister/ power of base brander. 3. Abnormal EKG but no change compared to previous. 4. Right eye conjunctivitis with discharge. 5. Tardive dyskinesia/extrapyramidal side effects of psychoactive medications. 6. Bipolar disorder, on multiple agents. Most likely, patient would benefit from titration of the psychoactive medications as she is developing side effects which could be actually life threatening, including the recurrent aspirations. 7. Chronic constipation and distended abdomen. Ordered bowel regimen. PLAN AND ORDERS 1. Patient is getting admitted as inpatient. 2. We will continue Zosyn for aspiration pneumonia. 3. Requested speech therapy and swallow evaluation. 4. Dysphagia diet. 5. Supportive care for respiratory infection, including small volume nebulizers , respiratory suctioning, chest physical therapy, and aspiration precautions. 6. Deep venous thrombosis prophylaxis. 7. Gastrointestinal prophylaxis. 8. Inhaled corticosteroid. For now, I did not order IV steroid as it is most likely an aspiration rather than chronic obstructive pulmonary disease exacerbation. 9. Physical therapy, occupational therapy evaluation and social work consult. 10. Tobramycin eye drops for conjunctivitis. 11. For now, I will hold all psychoactive medications as the patient is somnolent. She would likely benefit from simplifying the medication list and using less psychoactive medication. 12. Patient is septic; therefore, we will hold antihypertensives and we will continue IV hydration. 13. Given the first EKG being abnormal, there was a repeat EKG which did not show acute change. Troponin could be elevated in the setting of sepsis. Therefore, I will not order it. We will treat sepsis, and if there is further concern, then a cardiac workup could be considered. For now, we will monitor patient on telemetry and will follow the clinical course. ATTESTATION: I certify that the reasonable expectation for this patient is to remain hospitalized for at least 48 hours; however, to discharge or transfer to another facility within 96 hours. Time spent in the care of this patient was 75 minutes, which included conversation over the phone with her sister, clarifying code status and goals of care. TD: 11/24/2017 04:07 DAGOBERTO
[2017-11-24] MEDS ORDERED: POLYETHYLENE GLYCOL 3350 17 GM PACKET PO SCH (09:00)
[2017-11-24] MEDS: ENOXAPARIN 40 MG/0.4 ML SYRINGE SUBQ SCH (09:10)
[2017-11-24] MEDS: NYSTATIN POWDER 15 GM TOP SCH ×2 (09:17→22:56)
[2017-11-24] MEDS: PIPERACILLIN/TAZOBACTAM 3.375 GM in SODIUM CHLORIDE 0.9% MINIBAG 100 ML IV SCH ×2 (09:37→16:02)
[2017-11-24] MEDS: SODIUM CHLORIDE FLUSH 0.9% 10 ML SYRINGE IVP SCH ×2 (12:26→22:54)
[2017-11-24] MEDS ORDERED: traZODone 50 MG TABLET PO PRN (21:00)
[2017-11-24] MEDS: DIVALPROEX DR 250 MG TABLET PO SCH (22:55)
[2017-11-25] MEDS: TOBRAMYCIN 0.3% OPHTH DROPS 5 ML EACHEYE SCH ×11 (00:43→22:01)
[2017-11-25] MEDS: PIPERACILLIN/TAZOBACTAM 3.375 GM in SODIUM CHLORIDE 0.9% MINIBAG 100 ML IV SCH ×3 (00:43→17:12)
[2017-11-25] MEDS: SODIUM CHLORIDE FLUSH 0.9% 10 ML SYRINGE IVP SCH ×3 (00:44→21:21)
[2017-11-25 06:45] LABS: BASOPHILS % (AUTO) 0.4 %; EOSINOPHILS # (AUTO) 0.1 10^3/uL (0.0-0.7); EOSINOPHILS % (AUTO) 0.5 %; HGB - HEMOGLOBIN 11.5 g/dL (12.0-16.0); LYMPHOCYTES # (AUTO) 1.9 10^3/uL (1.5-3.5); LYMPHOCYTES % (AUTO) 16.6 %; MEAN CORPUSCULAR HEMOGLOBIN 29.5 pg (27.0-31.0); MEAN CORPUSCULAR VOLUME 92.3 fL (81.0-99.0); MEAN PLATELET VOLUME 7.1 fL (7.9-10.8); MONOCYTES # (AUTO) 0.8 10^3/uL (0.0-1.0); MONOCYTES % (AUTO) 6.7 %; NEUTROPHILS # (AUTO) 8.8 10^3/uL (1.5-6.6); NEUTROPHILS % (AUTO) 75.8 %; PLT - PLATELET COUNT 136 10^3/uL (130-450); RED BLOOD COUNT 3.91 10^6/uL (4.20-5.40); RED CELL DISTRIBUTION WIDTH 15.8 % (12.0-15.0); WHITE BLOOD COUNT 11.6 x10^3/uL (4.8-10.8)
[2017-11-25 07:18] LABS: ALBUMIN 3.3 g/dL (3.2-5.5); ALBUMIN/GLOBULIN RATIO 1.1 (1.0-2.2); BILIRUBIN,TOTAL 0.6 mg/dL (0.2-1.0); CALCIUM 9.1 mg/dL (8.5-10.3); CREATININE 0.7 mg/dL (0.4-1.0); CRP - C-REACTIVE PROTEIN 18.3 mg/dL (0-1.0); MAGNESIUM 2.2 mg/dL (1.7-2.8); TOTAL PROTEIN 6.3 g/dL (6.7-8.2)
[2017-11-25] MEDS: IPRATROPIUM/ALBUTEROL 3 ML NEB INH SCH ×4 (07:33→20:04)
[2017-11-25] MEDS: BUDESONIDE 0.5 MG/2 ML NEB INH SCH ×2 (07:33→20:04)
--- NOTE | 2017-11-25 08:41 | PROVIDER PROGRESS NOTE ---
Assessment/Plan - Problem List (1) Polypharmacy Assessment/Plan: The patient came to the hospital with a medication list that contained 22 medications. Sedating meds included trazodone, lamictal, zyprexa, depakote, and zoloft. All of which were at the max doses. The patient has had numerous bouts of pneumonia and UTIs and this is likely caused by so many sedating agents. She was also found to have such dry eyes, that required ointment. In addition, the patient is prescribed lactulose which is a RED flag of polypharmacy. Plan: HOLDing all medications and will continue depakote in light of a seizure disorder. (2) Pneumonia Qualifiers: Aspiration pneumonia type: unspecified Assessment/Plan: The patient had a chest x-ray upon admission that showed mild intersitial infiltrates, and the patient has a history of aspiration pneumonia. She also had and elevated WBC count of 14.6. A temp max of 38.2 and a productive cough. Plan: Continue IV antibiotics that were started by admitting MD, respiratory care, and monitor labs/VS. (3) SIRS (systemic inflammatory response syndrome) Assessment/Plan: This is now ruled out, as the patient had normal lactic acid values and her temperature is normalized. She continues to have a cough. Her blood pressure is not low. Plan: Continue to monitor. (4) Bipolar 1 disorder, depressed, mild Assessment/Plan: The patient is prescribed zoloft for this at the max dose that will be reduced due to the polypharmacy complication in her life. She has been chemically sedated for quite some time. Since being here the patient has not had any evidence of combativeness, sadness, or mood instability. Her zoloft was titrated down as it was at the max dose as well. Plan: Continue treatment and monitor overall well being. (5) Constipation Qualifiers: Constipation type: drug induced constipation Qualified Code(s): K59.03 - Drug induced constipation Assessment/Plan: The patient was found to be on a large combination of medications, which have been on hold or reduced. Given her seizure disorder, we will continue the depakote. The patient likely has chronic constipation as a result of her numerous medications. Plan: Continue to encourage activity and give stool softeners/laxatives as needed. (6) Seizure disorder Assessment/Plan: The patient has this listed in her history, but she does not recall ever having seizures. Her sister claims that her last seizure was when she was about 15 years old. Plan: Stop all other sedating drugs, and reduce depakote dose. (7) Urinary tract infection Assessment/Plan: The patient has had UTIs in the past and is prescribed mirabegron for urinary incontinence. Plan: Discontinue as this has been contraindicated with its cholonergic properties. - Current Meds Current Meds: Active Medications Acetaminophen (Tylenol) 650 mg PO Q4HR PRN PRN Reason: Pain 1 to 4 Albuterol/Ipratropium (Duoneb) 3 ml INH Q6HR [facility] Last Admin: 11/26/17 23:23 Dose: 3 ml Aspirin ([place] Aspirin) 81 mg PO DAILY [facility] Last Admin: 11/26/17 07:57 Dose: 81 mg Atorvastatin Calcium (Lipitor) 40 mg PO DAILY [facility] Last Admin: 11/26/17 07:56 Dose: 40 mg Bisacodyl (Dulcolax Supp) 10 mg DC DAILY PRN PRN Reason: Constipation Budesonide (Pulmicort) 0.5 mg INH RTBID [facility] Last Admin: 11/26/17 19:13 Dose: 0.5 mg Divalproex Sodium (Depakote Dr) 250 mg PO BID [facility] Enoxaparin Sodium (Lovenox) 40 mg SUBQ DAILY [facility] Last Admin: 11/26/17 07:55 Dose: 40 mg Famotidine (Pepcid 20 Mg/50 Ml) 50 mls @ 100 mls/hr IV BID [facility] Last Infusion: 11/26/17 22:00 Dose: Infused Piperacillin Sod/Tazobactam (Sod 3.375 gm/ Sodium Chloride) 100 mls @ 200 mls/ hr IV Q8H [facility] Last Infusion: 11/27/17 00:59 Dose: Infused Magnesium Hydroxide (Milk Of Magnesia) 2,400 mg PO DAILY PRN PRN Reason: Constipation Nystatin (Nystop) 1 applic TOP BID [facility] Last Admin: 11/26/17 21:08 Dose: 1 applic Ondansetron HCl (Zofran Inj) 4 mg IVP Q6HR PRN PRN Reason: Nausea / Vomiting Polyethylene Glycol (Miralax) 17 gm PO DAILY [facility] Last Admin: 11/26/17 07:54 Dose: 17 gm Sertraline HCl (Zoloft) 150 mg PO DAILY [facility] Sodium Chloride (Normal Saline Flush 0.9%) 10 ml IVP PRN PRN PRN Reason: NEEDED PER PROVIDER ORDERS Last Admin: 11/26/17 02:39 Dose: 10 ml Sodium Chloride (Normal Saline Flush 0.9%) 10 ml IVP 0100,0900,1700 [facility] Last Admin: 11/27/17 00:12 Dose: 10 ml Tobramycin Sulfate (Tobrex) 1 drops EACHEYE Q2H [facility] Last Admin: 11/27/17 00:12 Dose: 1 drops Atorvastatin Calcium [Lipitor] 40 mg PO DAILY 03/30/16 Ergocalciferol [Vitamin D2] 50,000 unit PO TU 03/30/16 Erythromycin Base [Erythromycin Ophthalmic Ointment] 1 applic OP TID PRN Lactulose [Generlac] 20 gm PO DAILY 03/30/16 Mirabegron [Myrbetriq] 25 mg PO DAILY 03/30/16 Multivit with Calcium,Iron,Min [Multiple Vitamins For Women] 1 each PO DAILY Olanzapine [Zyprexa] 20 mg PO DAILY PM 03/30/16 Thiamine [Vitamin B-1] 100 mg PO DAILY 03/30/16 Tiotropium [place] [Spiriva] 18 mcg IH DAILY 03/30/16 lamoTRIgine [LaMICtal] 50 mg PO BID 03/30/16 traZODone [Desyrel] 50 mg PO QPM PRN 03/30/16 Ascorbic Acid [Vitamin C] 2,000 mg PO DAILY 11/01/16 Cranberry Fruit Concentrate [Cranberry] 900 mg PO QPM 11/01/[address] [Depakote Dr] 500 mg PO BID 11/01/16 Mineral Oil/Hydrophil Petrolat [Aquaphor Ointment] 1 applic TOP PRN PRN Vitamin E Acetate [Vitamin E] 400 unit PO DAILY 11/01/16 Acetaminophen 500 mg PO Q4H PRN 11/24/17 Amlodipine Besylate 10 mg PO QDDINNER 11/24/17 Aspirin 81 mg PO DAILY 11/24/17 Fluticasone/Salmeterol [Advair 250-50 Diskus] 1 puffs INH BID 11/24/17 Ipratropium/Albuterol [Duoneb] 3 ml INH BID PRN 11/24/17 [place]-3/Dha/Epa/Fish Oil [Fish Oil 1,000 mg Softgel] 1,000 mg PO TIDWM 11/24/17 Sertraline HCl 200 mg PO DAILY 11/24/17 Current Medications Generic Name Dose Route Start Last Admin Trade Name Maribell PRN Reason Stop Dose Admin Albuterol/Ipratropium 3 ml 11/24/17 02:00 11/25/17 07:33 Duoneb INH 3 ml Q6HR NISHA Administration Budesonide 0.5 mg 11/24/17 02:00 11/25/17 07:33 Pulmicort INH 0.5 mg RTBID NISHA Administration Divalproex Sodium 500 mg 11/24/17 21:00 11/24/17 22:[address] PO 500 mg BID NISHA Administration Enoxaparin Sodium 40 mg 11/24/17 09:00 11/24/17 09:10 Lovenox SUBQ 40 mg DAILY NISHA Administration Famotidine 50 mls @ 100 mls/hr 11/24/17 02:00 11/25/17 00:54 Pepcid 20 Mg/50 Ml IV Infused BID NISHA Infusion Piperacillin Sod/Tazobactam 100 mls @ 200 mls/hr 11/24/17 08:00 11/25/17 01: 15 Sod 3.375 gm/ Sodium Chloride IV Infused Q8H NISHA Infusion Nystatin 1 applic 11/24/17 07:00 11/24/17 22:56 Nystop TOP 1 applic BID NISHA Administration Sodium Chloride 10 ml 11/24/17 09:00 11/25/17 00:44 Normal Saline Flush 0.9% IVP 10 ml 0100,0900,1700 NISHA Administration Tobramycin Sulfate 1 drops 11/24/17 02:00 11/25/17 05:55 Tobrex EACHEYE 1 drops Q2H NISHA Administration - Lab Result Lab results reviewed: Yes Fish Bone Diagrams: 11/27/17 05:30 11/27/17 05:30 - EKG Results EKG Interpreted Independently: Yes - Diagnostic Imaging Results Diagnostic Imaging Results: Prelim report reviewed, Final report reviewed Diagnostic Imaging Results Comments: EXAM: CHEST RADIOGRAPHY EXAM DATE: 11/23/2017 11:27 PM. CLINICAL HISTORY: Fever, cough. COMPARISON: 10/31/2016. TECHNIQUE: 1 view. FINDINGS: Lungs/Pleura: Possible pulmonary vascular congestion. Interstitial infiltrate also possible. No alveolar consolidation or pleural effusion seen. No pneumothorax. Mediastinum: Rotated. Within exam limitations, heart appears mildly enlarged. Other: Status post left mastectomy. Degenerative joint disease and bony proliferation about the shoulders. IMPRESSION: 1. Rotated exam with mild cardiomegaly and possible pulmonary vascular congestion. 2. Mild interstitial infiltrate also possible. - Additional Planning Condition/Complexity: Improved My Orders: My Active Orders 11/24/17 21:[address] [Depakote Dr] 500 mg PO BID traZODone [Desyrel] 50 mg PO QPM PRN 11/25/17 09:00 Aspirin Chewable [[place] Aspirin] 81 mg PO DAILY Atorvastatin [Lipitor] 40 mg PO DAILY Polyethylene Glycol 3350 [Miralax] 17 gm PO DAILY Sertraline [Zoloft] 200 mg PO DAILY 11/26/17 05:00 CBC [CBC - COMP BLD CT W/AUTO DIFF] [HEME] DAILYLAB CMP [COMPREHENSIVE METABOLIC PANEL] [CHEM] DAILYLAB CRP - C-REACTIVE PROTEIN [CHEM] DAILYLAB ESR- ERYTHROCYTE SEDIMENT RATE [HEME] DAILYLAB MAGNESIUM [CHEM] DAILYLAB 11/27/17 05:00 CBC [CBC - COMP BLD CT W/AUTO DIFF] [HEME] DAILYLAB CMP [COMPREHENSIVE METABOLIC PANEL] [CHEM] DAILYLAB CRP - C-REACTIVE PROTEIN [CHEM] DAILYLAB ESR- ERYTHROCYTE SEDIMENT RATE [HEME] DAILYLAB MAGNESIUM [CHEM] DAILYLAB Plan Discussed with:: Patient, Power of Consumer Educator Time Spent: 31-60 minutes Subjective - Subjective Patient Reports: No Complaints, Other (Was found calling out early in her shift) Nursing Reports: No Complaints Objective Vital Signs: Vital Signs - 24 hr 11/24/17 11/24/17 11/24/17 12:59 14:30 14:35 Temperature 37.5 C Heart Rate Heart Rate [ 81 Activity] Heart Rate [ 72 67 Brachial] Respiratory 18 Rate Blood Pressure 129/74 [Activity] Blood Pressure [Left Brachial artery] Blood Pressure 136/61 H 126/56 L [Right Brachial artery] O2 Saturation 96 97 11/24/17 11/24/17 11/24/17 16:00 19:51 22:30 Temperature 36.7 C 37.0 C Heart Rate 76 Heart Rate [ Activity] Heart Rate [ 69 71 Brachial] Respiratory 18 18 12 Rate Blood Pressure [Activity] Blood Pressure [Left Brachial artery] Blood Pressure 132/69 H 124/62 [Right Brachial artery] O2 Saturation 97 99 11/24/17 11/25/17 11/25/17 23:42 07:33 08:00 Temperature 37.7 C H 36.2 C L Heart Rate 62 Heart Rate [ Activity] Heart Rate [ 83 89 Brachial] Respiratory 22 24 18 Rate Blood Pressure [Activity] Blood Pressure 169/72 H [Left Brachial artery] Blood Pressure 130/75 [Right Brachial artery] O2 Saturation 95 99 Oxygen O2 Source Nasal cannula I&O (Last 24 Hrs): Intake and Output Totals x24h 11/23/17 11/24/17 11/25/17 23:59 23:59 23:59 Intake Total 1580 270 Balance 1580 270 General: Alert, Cooperative, No acute distress HEENT: Atraumatic, Mucous membr. moist/pink (crusty eyes continue) Neck: Supple, No JVD Lymphatic: no adenopathy Neuro: Alert, Focal Deficits, Speech Slurred, Other (tardive dyskinesia-chronic) Cardiovascular: Regular rate, Other (bradycardia) Respiratory: Chest non-tender, No respiratory distress, Wheezes, Rhonchi Abdomen: Normal bowel sounds, Soft, No tenderness Genitourinary: No Bleeding, No Tenderness Extremities: No clubbing, Normal pulses, Other (dependent edema) Skin: No rashes, No breakdown, No significant lesion - Results Results: Laboratory Results WBC 11.6 x10^3/uL (4.8-10.8) H 11/25/17 06:35 RBC 3.91 10^6/uL (4.20-5.40) L 11/25/17 06:35 Hgb 11.5 g/dL (12.0-16.0) L 11/25/17 06:35 Hct 36.0 % (37.0-47.0) L 11/25/17 06:35 MCV 92.3 fL (81.0-99.0) 11/25/17 06:35 MCH 29.5 pg (27.0-31.0) 11/25/17 06:35 MCHC 32.0 g/dL (32.0-36.0) 11/25/17 06:35 RDW 15.8 % (12.0-15.0) H 11/25/17 06:35 Plt Count 136 10^3/uL (130-450) 11/25/17 06:35 MPV 7.1 fL (7.9-10.8) L 11/25/17 06:35 Neut # 8.8 10^3/uL (1.5-6.6) H 11/25/17 06:35 Lymph # 1.9 10^3/uL (1.5-3.5) 11/25/17 06:35 [place] # 0.8 10^3/uL (0.0-1.0) 11/25/17 06:35 Eos # 0.1 10^3/uL (0.0-0.7) 11/25/17 06:35 Baso # 0.0 10^3/uL (0.0-0.1) 11/25/17 06:35 Absolute Nucleated RBC 0.02 x10^3/uL 11/25/17 06:35 Nucleated RBC % 0.1 /100WBC 11/25/17 06:35 ESR 37 mm/Hr (0-30) H 11/25/17 06:35 Sodium 147 mmol/L (135-145) H 11/25/17 06:35 Potassium 4.1 mmol/L (3.5-5.0) 11/25/17 06:35 Chloride 113 mmol/L (101-111) H 11/25/17 06:35 Carbon Dioxide 28 mmol/L (21-32) 11/25/17 06:35 Anion Gap 6.0 (6-13) 11/25/17 06:35 BUN 13 mg/dL (6-20) 11/25/17 06:35 Creatinine 0.7 mg/dL (0.4-1.0) 11/25/17 06:35 Estimated GFR (MDRD) 82 (>89) L 11/25/17 06:35 Glucose 127 mg/dL (70-100) H 11/25/17 06:35 Lactic Acid 2.1 mmol/L (0.5-2.2) 11/23/17 23:15 Calcium 9.1 mg/dL (8.5-10.3) 11/25/17 06:35 Magnesium 2.2 mg/dL (1.7-2.8) 11/25/17 06:35 Total Bilirubin 0.6 mg/dL (0.2-1.0) 11/25/17 06:35 AST 37 IU/L (10-42) 11/25/17 06:35 ALT 49 IU/L (10-60) 11/25/17 06:35 Alkaline Phosphatase 64 IU/L (42-121) 11/25/17 06:35 Troponin I < 0.04 ng/mL (<0.49) 11/23/17 23:15 C-Reactive Protein 18.3 mg/dL (0-1.0) H 11/25/17 06:35 B-Natriuretic Peptide 72 pg/mL (5-100) 11/23/17 23:15 Total Protein 6.3 g/dL (6.7-8.2) L 11/25/17 06:35 Albumin 3.3 g/dL (3.2-5.5) 11/25/17 06:35 Globulin 3.0 g/dL (2.1-4.2) 11/25/17 06:35 Albumin/Globulin Ratio 1.1 (1.0-2.2) 11/25/17 06:35 Lipase 22 U/L (22-51) 11/23/17 23:15 Urine Color YELLOW 11/23/17 23:23 Urine Clarity CLEAR (CLEAR) 11/23/17 23:23 Urine pH 6.0 PH (5.0-7.5) 11/23/17 23:23 Ur Specific [place] 1.020 (1.002-1.030) 11/23/17 23:23 Urine Protein 30 mg/dL (NEGATIVE) H 11/23/17 23:23 Urine Glucose (UA) NEGATIVE mg/dL (NEGATIVE) 11/23/17 23:23 Urine Ketones NEGATIVE mg/dL (NEGATIVE) 11/23/17 23:23 Urine Occult Blood SMALL (NEGATIVE) H 11/23/17 23:23 Urine Nitrite NEGATIVE (NEGATIVE) 11/23/17 23:23 Urine Bilirubin NEGATIVE (NEGATIVE) 11/23/17 23:23 Urine Urobilinogen 0.2 (NORMAL) E.U./dL (NORMAL) 11/23/17 23:23 Ur Leukocyte Esterase NEGATIVE (NEGATIVE) 11/23/17 23:23 Urine RBC 6-10 /HPF (0-5) H 11/23/17 23:23 Urine WBC 0-3 /HPF (0-5) 11/23/17 23:23 Ur Squamous Epith Cells MOD Squamous (<= Few) H 11/23/17 23:23 Urine Bacteria Rare /HPF (None Seen) 11/23/17 23:23 Ur Microscopic Review INDICATED 11/23/17 23:23 Urine Culture Comments NOT INDICATED 11/23/17 23:23 Influenza A (Rapid) Negative (Negative) 11/24/17 00:19 Influenza B (Rapid) Negative (Negative) 11/24/17 00:19 ABX Reporting Has patient been on IV antibiotics over the past 48 hours?: Yes
[2017-11-25] MEDS: POLYETHYLENE GLYCOL 3350 17 GM PACKET PO SCH (09:43)
[2017-11-25] MEDS: ENOXAPARIN 40 MG/0.4 ML SYRINGE SUBQ SCH (09:49)
[2017-11-25] MEDS: ASPIRIN CHEW 81 MG TABLET PO SCH (09:50)
[2017-11-25] MEDS: ATORVASTATIN 40 MG TABLET PO SCH (09:50)
[2017-11-25] MEDS: DIVALPROEX DR 250 MG TABLET PO SCH ×2 (09:50→21:20)
[2017-11-25] MEDS: FAMOTIDINE 20 MG/50 ML 50 ML IV SCH ×2 (09:51→21:20)
[2017-11-25] MEDS: SERTRALINE 50 MG TABLET PO SCH (09:51)
[2017-11-25] MEDS: NYSTATIN POWDER 15 GM TOP SCH ×2 (10:00→21:22)
[2017-11-26] MEDS: PIPERACILLIN/TAZOBACTAM 3.375 GM in SODIUM CHLORIDE 0.9% MINIBAG 100 ML IV SCH ×3 (00:34→16:25)
[2017-11-26] MEDS: TOBRAMYCIN 0.3% OPHTH DROPS 5 ML EACHEYE SCH ×13 (00:36→23:59)
[2017-11-26] MEDS: IPRATROPIUM/ALBUTEROL 3 ML NEB INH SCH ×5 (01:49→23:23)
[2017-11-26] MEDS: SODIUM CHLORIDE FLUSH 0.9% 10 ML SYRINGE IVP SCH ×3 (02:07→21:07)
[2017-11-26] MEDS: NYSTATIN POWDER 15 GM TOP SCH ×2 (02:07→21:08)
[2017-11-26] MEDS: SODIUM CHLORIDE FLUSH 0.9% 10 ML SYRINGE IVP PRN (02:39)
[2017-11-26] MEDS: BUDESONIDE 0.5 MG/2 ML NEB INH SCH ×2 (06:12→19:13)
[2017-11-26 06:36] LABS: BASOPHILS % (AUTO) 0.3 %; EOSINOPHILS # (AUTO) 0.2 10^3/uL (0.0-0.7); EOSINOPHILS % (AUTO) 2.1 %; HGB - HEMOGLOBIN 10.9 g/dL (12.0-16.0); LYMPHOCYTES # (AUTO) 1.8 10^3/uL (1.5-3.5); LYMPHOCYTES % (AUTO) 20.6 %; MEAN CORPUSCULAR HGB CONC 32.4 g/dL (32.0-36.0); MEAN CORPUSCULAR VOLUME 92.4 fL (81.0-99.0); MEAN PLATELET VOLUME 7.3 fL (7.9-10.8); MONOCYTES # (AUTO) 0.5 10^3/uL (0.0-1.0); MONOCYTES % (AUTO) 5.5 %; NEUTROPHILS # (AUTO) 6.2 10^3/uL (1.5-6.6); NEUTROPHILS % (AUTO) 71.5 %; PLT - PLATELET COUNT 145 10^3/uL (130-450); RED BLOOD COUNT 3.65 10^6/uL (4.20-5.40); RED CELL DISTRIBUTION WIDTH 15.8 % (12.0-15.0); WHITE BLOOD COUNT 8.7 x10^3/uL (4.8-10.8)
[2017-11-26 06:53] LABS: ALBUMIN 3.2 g/dL (3.2-5.5); ALBUMIN/GLOBULIN RATIO 1.2 (1.0-2.2); BILIRUBIN,TOTAL 0.7 mg/dL (0.2-1.0); CALCIUM 8.7 mg/dL (8.5-10.3); CREATININE 0.7 mg/dL (0.4-1.0); CRP - C-REACTIVE PROTEIN 12.2 mg/dL (0-1.0); MAGNESIUM 2.3 mg/dL (1.7-2.8); TOTAL PROTEIN 5.9 g/dL (6.7-8.2)
[2017-11-26] MEDS: POLYETHYLENE GLYCOL 3350 17 GM PACKET PO SCH (07:54)
[2017-11-26] MEDS: ENOXAPARIN 40 MG/0.4 ML SYRINGE SUBQ SCH (07:55)
[2017-11-26] MEDS: SERTRALINE 50 MG TABLET PO SCH (07:56)
[2017-11-26] MEDS: ATORVASTATIN 40 MG TABLET PO SCH (07:56)
[2017-11-26] MEDS: ASPIRIN CHEW 81 MG TABLET PO SCH (07:57)
[2017-11-26] MEDS: DIVALPROEX DR 250 MG TABLET PO SCH ×2 (07:57→21:06)
[2017-11-26] MEDS: FAMOTIDINE 20 MG/50 ML 50 ML IV SCH ×2 (08:09→21:07)
[2017-11-27] MEDS: SODIUM CHLORIDE FLUSH 0.9% 10 ML SYRINGE IVP SCH ×3 (00:12→17:57)
[2017-11-27] MEDS: TOBRAMYCIN 0.3% OPHTH DROPS 5 ML EACHEYE SCH ×5 (00:12→08:03)
[2017-11-27] MEDS: PIPERACILLIN/TAZOBACTAM 3.375 GM in SODIUM CHLORIDE 0.9% MINIBAG 100 ML IV SCH ×3 (00:19→17:56)
--- NOTE | 2017-11-27 00:51 | PROVIDER PROGRESS NOTE ---
Subjective - Prog Note Date Prog Note Date: 11/26/17 Prog Note Time: 10:00 - Subjective Pt reports feeling: Improved Subjective: Mackenzie has no complaints except regarding her medications, which she claims to "no know why she is on them". She denies SOB, chest pain, N/V or a new cough. Current Medications - Current Medications Current Medications: Active Medications Acetaminophen (Tylenol) 650 mg PO Q4HR PRN PRN Reason: Pain 1 to 4 Albuterol/Ipratropium (Duoneb) 3 ml INH Q6HR [facility] Last Admin: 11/26/17 23:23 Dose: 3 ml Aspirin ([place] Aspirin) 81 mg PO DAILY [facility] Last Admin: 11/26/17 07:57 Dose: 81 mg Atorvastatin Calcium (Lipitor) 40 mg PO DAILY [facility] Last Admin: 11/26/17 07:56 Dose: 40 mg Bisacodyl (Dulcolax Supp) 10 mg [place] DAILY PRN PRN Reason: Constipation Budesonide (Pulmicort) 0.5 mg INH RTBID [facility] Last Admin: 11/26/17 19:13 Dose: 0.5 mg Divalproex Sodium (Depakote Dr) 500 mg PO BID [facility] Last Admin: 11/26/17 21:06 Dose: 500 mg Enoxaparin Sodium (Lovenox) 40 mg SUBQ DAILY [facility] Last Admin: 11/26/17 07:55 Dose: 40 mg Famotidine (Pepcid 20 Mg/50 Ml) 50 mls @ 100 mls/hr IV BID [facility] Last Infusion: 11/26/17 22:00 Dose: Infused Piperacillin Sod/Tazobactam (Sod 3.375 gm/ Sodium Chloride) 100 mls @ 200 mls/ hr IV Q8H [facility] Last Admin: 11/27/17 00:19 Dose: 200 mls/hr Magnesium Hydroxide (Milk Of Magnesia) 2,400 mg PO DAILY PRN PRN Reason: Constipation Nystatin (Nystop) 1 applic TOP BID [facility] Last Admin: 11/26/17 21:08 Dose: 1 applic Ondansetron HCl (Zofran Inj) 4 mg IVP Q6HR PRN PRN Reason: Nausea / Vomiting Polyethylene Glycol (Miralax) 17 gm PO DAILY [facility] Last Admin: 11/26/17 07:54 Dose: 17 gm Sertraline HCl (Zoloft) 200 mg PO DAILY [facility] Last Admin: 11/26/17 07:56 Dose: 200 mg Sodium Chloride (Normal Saline Flush 0.9%) 10 ml IVP PRN PRN PRN Reason: NEEDED PER PROVIDER ORDERS Last Admin: 11/26/17 02:39 Dose: 10 ml Sodium Chloride (Normal Saline Flush 0.9%) 10 ml IVP 0100,0900,1700 [facility] Last Admin: 11/27/17 00:12 Dose: 10 ml Tobramycin Sulfate (Tobrex) 1 drops EACHEYE Q2H [facility] Last Admin: 11/27/17 00:12 Dose: 1 drops Trazodone HCl (Desyrel) 50 mg PO QPM PRN PRN Reason: Insomnia Atorvastatin Calcium [Lipitor] 40 mg PO DAILY 03/30/16 Ergocalciferol [Vitamin D2] 50,000 unit PO TU 03/30/16 Erythromycin Base [Erythromycin Ophthalmic Ointment] 1 applic OP TID PRN Lactulose [Generlac] 20 gm PO DAILY 03/30/16 Mirabegron [Myrbetriq] 25 mg PO DAILY 03/30/16 Multivit with Calcium,Iron,Min [Multiple Vitamins For Women] 1 each PO DAILY Olanzapine [Zyprexa] 20 mg PO DAILY PM 03/30/16 Thiamine [Vitamin B-1] 100 mg PO DAILY 03/30/16 Tiotropium [place] [Spiriva] 18 mcg IH DAILY 03/30/16 lamoTRIgine [LaMICtal] 50 mg PO BID 03/30/16 traZODone [Desyrel] 50 mg PO QPM PRN 03/30/16 Ascorbic Acid [Vitamin C] 2,000 mg PO DAILY 11/01/16 Cranberry Fruit Concentrate [Cranberry] 900 mg PO QPM 11/01/[address] [Depgemate Dr] 500 mg PO BID 11/01/16 Mineral Oil/Hydrophil Petrolat [Aquaphor Ointment] 1 applic TOP PRN PRN Vitamin E Acetate [Vitamin E] 400 unit PO DAILY 11/01/16 Acetaminophen 500 mg PO Q4H PRN 11/24/17 Amlodipine Besylate 10 mg PO QDDINNER 11/24/17 Aspirin 81 mg PO DAILY 11/24/17 Fluticasone/Salmeterol [Advair 250-50 Diskus] 1 puffs INH BID 11/24/17 Ipratropium/Albuterol [Duoneb] 3 ml INH BID PRN 11/24/17 [place]-3/Dha/Epa/Fish Oil [Fish Oil 1,000 mg Softgel] 1,000 mg PO TIDWM 11/24/17 Sertraline HCl 200 mg PO DAILY 11/24/17 Objective - Vital Signs/Intake & Output Reviewed Vital Signs: Yes Vital Signs: Vital Signs x48h Temp Pulse Pulse Resp BP Pulse Ox 11/26/17 23:30 36.9 C 60 18 134/66 H 96 11/26/17 23:21 55 L 18 11/26/17 19:14 61 18 Intake & Output: Intake & Output 11/24/17 11/25/17 11/26/17 11/27/17 23:59 23:59 23:59 23:59 Intake Total 1580 3140 1910 Balance 1580 3140 1910 - Objective General Appearance: positive: No acute distress, Alert Eyes Bilateral: positive: Normal inspection Eyes: OU Other (dry, crusty eye matter, reduced from previous.) ENT: positive: ENT inspection nml, Pharynx nml, Pharyngeal erythema, Dry mucous membranes Neck: positive: Nml inspection, Thyroid nml, Lymphadenopathy (R), Lymphadenopathy (L), Stiff neck Respiratory: positive: Chest non-tender, No respiratory distress, Rhonchi ( coarse crackles, bilateral lobes.) Cardiovascular: positive: Regular rate & rhythm, Systolic murmur, Decreased pulse(s) Peripheral Pulses: 1+ Radial (R), 1+ Radial (L) Abdomen: positive: Non-tender, Nml bowel sounds, Other (obese, soft.) Back: positive: Nml inspection Skin: positive: No rash, Warm, Dry Extremities: positive: Non-tender, Full ROM, Pedal edema (mild, dependent.), Joint swelling Neurologic/Psychiatric: positive: Disoriented to time, Weakness, Sensory loss, Slurred/abnml speech (baseline cognitive delay.), Depressed mood/affect Reflexes: Bicep (R): 2+, Bicep (L): 2+ - Lab Results Fish Bones: 11/27/17 05:30 05/13/18 05:30 Other Labs: Lab Results x24hrs 11/26/17 11/26/17 11/26/17 Range/Units 06:10 06:10 06:10 WBC 8.7 (4.8-10.8) x10^3/uL RBC 3.65 L (4.20-5.40) 10^6/uL Hgb 10.9 L (12.0-16.0) g/dL Hct 33.7 L (37.0-47.0) % MCV 92.4 (81.0-99.0) fL MCH 30.0 (27.0-31.0) pg MCHC 32.4 (32.0-36.0) g/dL RDW 15.8 H (12.0-15.0) % Plt Count 145 (130-450) 10^3/uL MPV 7.3 L (7.9-10.8) fL Neut # 6.2 (1.5-6.6) 10^3/uL Lymph # 1.8 (1.5-3.5) 10^3/uL [place] # 0.5 (0.0-1.0) 10^3/uL Eos # 0.2 (0.0-0.7) 10^3/uL Baso # 0.0 (0.0-0.1) 10^3/uL Absolute Nucleated RBC 0.00 x10^3/uL Nucleated RBC % 0.0 /100WBC ESR 40 H (0-30) mm/Hr Sodium 145 (135-145) mmol/L Potassium 4.3 (3.5-5.0) mmol/L Chloride 109 (101-111) mmol/L Carbon Dioxide 29 (21-32) mmol/L Anion Gap 7.0 (6-13) BUN 15 (6-20) mg/dL Creatinine 0.7 (0.4-1.0) mg/dL Estimated GFR (MDRD) 82 L (>89) Glucose 128 H (70-100) mg/dL Calcium 8.7 (8.5-10.3) mg/dL Magnesium 2.3 (1.7-2.8) mg/dL Total Bilirubin 0.7 (0.2-1.0) mg/dL AST 27 (10-42) IU/L ALT 47 (10-60) IU/L Alkaline Phosphatase 66 (42-121) IU/L C-Reactive Protein 12.2 H (0-1.0) mg/dL Total Protein 5.9 L (6.7-8.2) g/dL Albumin 3.2 (3.2-5.5) g/dL Globulin 2.7 (2.1-4.2) g/dL Albumin/Globulin Ratio 1.2 (1.0-2.2) - Diagnostic Imaging Diagnostic Imaging Results: positive: Final report reviewed ABX Reporting Has patient been on IV antibiotics over the past 48 hours?: Yes Assessment/Plan - Problem List (1) Polypharmacy Impression: The patient came to the hospital with a medication list that contained 22 medications. Sedating meds included trazodone, lamictal, zyprexa, depakote, and zoloft. All of which were at the max doses. The patient has had numerous bouts of pneumonia and UTIs and this is likely caused by so many sedating agents. She was also found to have such dry eyes, that required ointment. In addition, the patient is prescribed lactulose which is a RED flag of polypharmacy. The patient continues to have improved moments of alertness. Plan: Continue medications Depakote and Zoloft and monitor mental status. (2) Aspiration pneumonia Impression: The patient had a chest x-ray upon admission that showed mild intersitial infiltrates, and the patient has a history of aspiration pneumonia. She also had and elevated WBC count of 14.6. A temp max of 38.2 and a productive cough. Today the patient is not requiring supplemental oxygen and her WBC count is normal. She has also been afebrile. A swallowing evaluation was completed and they recommend thickened liquids. Plan: Continue IV antibiotics that were started by admitting MD, respiratory care, provide meals with 1:1 feeding and swallowing precautions, and monitor labs/VS. (3) Bipolar 1 disorder, depressed, mild Impression: The patient is prescribed zoloft for this at the max dose that will be reduced due to the polypharmacy concerns. She has been chemically sedated for quite some time. Since being here the patient has not had any evidence of combativeness, sadness, or mood instability. Her zoloft was titrated down as it was at the max dose as well. Plan: Continue treatment and monitor overall well being. (4) SIRS (systemic inflammatory response syndrome) Impression: This is now ruled out, as the patient had normal lactic acid values and her temperature is normalized. She continues to have a cough. Her blood pressure is not low. She has also had no growth on blood cultures x2. Plan: Continue to monitor. (5) Constipation Impression: The patient was found to be on a large combination of medications, which have been on hold or reduced. Given her seizure disorder and bipolar disorder, we will continue the depakote and zoloft. The patient likely has chronic constipation as a result of her numerous medications and was previously prescribed lactulose, which has been discontinued. She remains on a daily Mirralax. Plan: Continue to encourage activity and give stool softeners/laxatives as needed. Qualifiers: Constipation type: drug induced constipation Qualified Code(s): K59.03 - Drug induced constipation (6) Seizure disorder Impression: The patient has this listed in her history, but she does not recall ever having seizures. Her sister claims that her last seizure was when she was about 15 years old. Plan: Stop all other sedating drugs, monitor for evidence of seizure activity, and continue new reduced depakote dose.
[2017-11-27 06:09] LABS: BASOPHILS % (AUTO) 0.3 %; EOSINOPHILS # (AUTO) 0.1 10^3/uL (0.0-0.7); EOSINOPHILS % (AUTO) 2.6 %; HGB - HEMOGLOBIN 11.1 g/dL (12.0-16.0); LYMPHOCYTES # (AUTO) 1.6 10^3/uL (1.5-3.5); LYMPHOCYTES % (AUTO) 27.8 %; MEAN CORPUSCULAR HEMOGLOBIN 29.8 pg (27.0-31.0); MEAN CORPUSCULAR HGB CONC 32.5 g/dL (32.0-36.0); MEAN CORPUSCULAR VOLUME 91.7 fL (81.0-99.0); MEAN PLATELET VOLUME 7.2 fL (7.9-10.8); MONOCYTES # (AUTO) 0.5 10^3/uL (0.0-1.0); MONOCYTES % (AUTO) 7.8 %; NEUTROPHILS # (AUTO) 3.6 10^3/uL (1.5-6.6); NEUTROPHILS % (AUTO) 61.5 %; PLT - PLATELET COUNT 162 10^3/uL (130-450); RED BLOOD COUNT 3.73 10^6/uL (4.20-5.40); RED CELL DISTRIBUTION WIDTH 15.5 % (12.0-15.0); WHITE BLOOD COUNT 5.8 x10^3/uL (4.8-10.8)
[2017-11-27] MEDS: BUDESONIDE 0.5 MG/2 ML NEB INH SCH ×2 (06:09→20:09)
[2017-11-27] MEDS: IPRATROPIUM/ALBUTEROL 3 ML NEB INH SCH ×3 (06:09→20:09)
[2017-11-27 06:25] LABS: ALBUMIN 3.2 g/dL (3.2-5.5); ALBUMIN/GLOBULIN RATIO 1.1 (1.0-2.2); BILIRUBIN,TOTAL 0.4 mg/dL (0.2-1.0); CALCIUM 9.4 mg/dL (8.5-10.3); CREATININE 0.7 mg/dL (0.4-1.0); CRP - C-REACTIVE PROTEIN 5.8 mg/dL (0-1.0); MAGNESIUM 2.2 mg/dL (1.7-2.8); TOTAL PROTEIN 6.1 g/dL (6.7-8.2)
[2017-11-27 07:27] LABS: HB2 TOTAL 12.1 g/dL; HEMOGLOBIN A1C 0.44 g/dL; HEMOGLOBIN A1C % 5.5 % (4.6-6.2)
[2017-11-27] MEDS: ASPIRIN CHEW 81 MG TABLET PO SCH (08:52)
[2017-11-27] MEDS: ENOXAPARIN 40 MG/0.4 ML SYRINGE SUBQ SCH (08:52)
[2017-11-27] MEDS: SERTRALINE 50 MG TABLET PO SCH ×2 (08:52→09:03)
[2017-11-27] MEDS: ATORVASTATIN 40 MG TABLET PO SCH (08:52)
[2017-11-27] MEDS: DIVALPROEX DR 250 MG TABLET PO SCH ×2 (08:52→09:03)
[2017-11-27] MEDS: POLYETHYLENE GLYCOL 3350 17 GM PACKET PO SCH (08:53)
[2017-11-27] MEDS: NYSTATIN POWDER 15 GM TOP SCH ×2 (08:53→22:20)
[2017-11-27] MEDS: FAMOTIDINE 20 MG/50 ML 50 ML IV SCH (08:53)
[2017-11-27 09:34] LABS: BILIRUBIN,URINE NEGATIVE (NEGATIVE); GLUCOSE, URINE (UA) NEGATIVE (NEGATIVE); KETONES,URINE (UA) NEGATIVE (NEGATIVE); LEUKOCYTE ESTERASE, URINE NEGATIVE (NEGATIVE); NITRITE,URINE NEGATIVE (NEGATIVE); OCCULT BLOOD,URINE NEGATIVE (NEGATIVE); PH,URINE 7.5 PH (5.0-7.5); PROTEIN,URINE NEGATIVE (NEGATIVE); UROBILINOGEN,URINE 0.2 (NORMAL) E.U./dL (NORMAL)
[2017-11-27 09:49] LABS: BACTERIA,URINE None Seen /HPF (None Seen); CLARITY,URINE CLEAR (CLEAR); RBC,URINE None Seen /HPF (0-5); SQUAMOUS EPITHELIAL CELL,UR RARE Squamous (<= Few)
[2017-11-27] MEDS ORDERED: SERTRALINE 50 MG TABLET PO SCH (10:07)
--- NOTE | 2017-11-27 12:33 | PROVIDER PROGRESS NOTE ---
Subjective - Prog Note Date Prog Note Date: 11/27/17 Prog Note Time: 12:31 - Subjective Pt reports feeling: Improved Subjective: Mackenzie claims that she did not like her last living situation. She has no other complaints and is sleeping well at night. She denies SOB, chest pain, N/ V or a new or increased cough. Objective - Vital Signs/Intake & Output Reviewed Vital Signs: Yes Vital Signs: Vital Signs x48h Temp Pulse Pulse Resp BP Pulse Ox 11/27/17 07:41 36.7 C 56 L 16 119/64 99 11/27/17 06:05 53 L 18 Intake & Output: Intake & Output 11/24/17 11/25/17 11/26/17 11/27/17 23:59 23:59 23:59 23:59 Intake Total 1580 3140 1910 970 Balance 1580 3140 1910 970 - Objective General Appearance: positive: No acute distress, Alert Eyes Bilateral: positive: PERRL Eyes: OU Conjunctivae pale, OU Other (less crusting noted around eyes, bilaterally. Now on moisture drops.) ENT: positive: ENT inspection nml, Pharynx nml, Pharyngeal erythema, Dry mucous membranes Neck: positive: Nml inspection, Thyroid nml, No JVD, Lymphadenopathy (R), Lymphadenopathy (L), Stiff neck Respiratory: positive: Chest non-tender, No respiratory distress, Rhonchi ( noted in low bases, clear after coughing.) Cardiovascular: positive: Regular rate & rhythm, No gallop, Systolic murmur, Decreased pulse(s) Peripheral Pulses: 1+ Radial (R), 1+ Radial (L) Abdomen: positive: Non-tender, Nml bowel sounds, Other (obese, rounded, soft.) Back: positive: Nml inspection Skin: positive: No rash, Warm, Dry, Pallor Extremities: positive: Non-tender, Full ROM, Nml appearance Neurologic/Psychiatric: positive: Oriented x3, CN's nml (2-12), Weakness, Sensory loss, Slurred/abnml speech (baseline cognitive delay), Depressed mood/ affect, Other (tardive dyskinesia.) Reflexes: Bicep (R): 2+, Bicep (L): 2+ - Lab Results Fish Bones: 11/27/17 05:30 11/27/17 05:30 Other Labs: Lab Results x24hrs 11/27/17 11/27/17 11/27/17 Range/Units 08:30 05:30 05:30 WBC (4.8-10.8) x10^3/uL RBC (4.20-5.40) 10^6/uL Hgb (12.0-16.0) g/dL Hct (37.0-47.0) % MCV (81.0-99.0) fL MCH (27.0-31.0) pg MCHC (32.0-36.0) g/dL RDW (12.0-15.0) % Plt Count (130-450) 10^3/uL MPV (7.9-10.8) fL Neut # (1.5-6.6) 10^3/uL Lymph # (1.5-3.5) 10^3/uL Sheridan # (0.0-1.0) 10^3/uL Eos # (0.0-0.7) 10^3/uL Baso # (0.0-0.1) 10^3/uL Absolute Nucleated RBC x10^3/uL Nucleated RBC % /100WBC ESR (0-30) mm/Hr Sodium (135-145) mmol/L Potassium (3.5-5.0) mmol/L Chloride (101-111) mmol/L Carbon Dioxide (21-32) mmol/L Anion Gap (6-13) BUN (6-20) mg/dL Creatinine (0.4-1.0) mg/dL Estimated GFR (MDRD) (>89) Glucose (70-100) mg/dL Glycated Hemoglobin 5.5 (4.6-6.2) % Estim Average Glucose 111 H (70-100) Calcium (8.5-10.3) mg/dL Magnesium (1.7-2.8) mg/dL Total Bilirubin (0.2-1.0) mg/dL AST (10-42) IU/L ALT (10-60) IU/L Alkaline Phosphatase (42-121) IU/L C-Reactive Protein (0-1.0) mg/dL Total Protein (6.7-8.2) g/dL Albumin (3.2-5.5) g/dL Globulin (2.1-4.2) g/dL Albumin/Globulin Ratio (1.0-2.2) TSH 2.53 (0.34-5.60) uIU/mL Urine Color YELLOW Urine Clarity CLEAR (CLEAR) Urine pH 7.5 (5.0-7.5) PH Ur Specific Hardwick 1.010 (1.002-1.030) Urine Protein NEGATIVE (NEGATIVE) mg/dL Urine Glucose (UA) NEGATIVE (NEGATIVE) mg/dL Urine Ketones NEGATIVE (NEGATIVE) mg/dL Urine Occult Blood NEGATIVE (NEGATIVE) Urine Nitrite NEGATIVE (NEGATIVE) Urine Bilirubin NEGATIVE (NEGATIVE) Urine Urobilinogen 0.2 (NORMAL) (NORMAL) E.U./dL Ur Leukocyte Esterase NEGATIVE (NEGATIVE) Urine RBC None Seen (0-5) /HPF Urine WBC 0-3 (0-5) /HPF Ur Squamous Epith Cells RARE Squamous (<= Few) Urine Bacteria None Seen (None Seen) /HPF Urine Culture Comments NOT INDICATED 11/27/17 11/27/17 11/27/17 Range/Units 05:30 05:30 05:30 WBC 5.8 (4.8-10.8) x10^3/uL RBC 3.73 L (4.20-5.40) 10^6/uL Hgb 11.1 L (12.0-16.0) g/dL Hct 34.2 L (37.0-47.0) % MCV 91.7 (81.0-99.0) fL MCH 29.8 (27.0-31.0) pg MCHC 32.5 (32.0-36.0) g/dL RDW 15.5 H (12.0-15.0) % Plt Count 162 (130-450) 10^3/uL MPV 7.2 L (7.9-10.8) fL Neut # 3.6 (1.5-6.6) 10^3/uL Lymph # 1.6 (1.5-3.5) 10^3/uL Sheridan # 0.5 (0.0-1.0) 10^3/uL Eos # 0.1 (0.0-0.7) 10^3/uL Baso # 0.0 (0.0-0.1) 10^3/uL Absolute Nucleated RBC 0.00 x10^3/uL Nucleated RBC % 0.0 /100WBC ESR 49 H (0-30) mm/Hr Sodium 145 (135-145) mmol/L Potassium 4.6 (3.5-5.0) mmol/L Chloride 109 (101-111) mmol/L Carbon Dioxide 29 (21-32) mmol/L Anion Gap 7.0 (6-13) BUN 15 (6-20) mg/dL Creatinine 0.7 (0.4-1.0) mg/dL Estimated GFR (MDRD) 82 L (>89) Glucose 132 H (70-100) mg/dL Glycated Hemoglobin (4.6-6.2) % Estim Average Glucose (70-100) Calcium 9.4 (8.5-10.3) mg/dL Magnesium 2.2 (1.7-2.8) mg/dL Total Bilirubin 0.4 (0.2-1.0) mg/dL AST 22 (10-42) IU/L ALT 43 (10-60) IU/L Alkaline Phosphatase 75 (42-121) IU/L C-Reactive Protein 5.8 H (0-1.0) mg/dL Total Protein 6.1 L (6.7-8.2) g/dL Albumin 3.2 (3.2-5.5) g/dL Globulin 2.9 (2.1-4.2) g/dL Albumin/Globulin Ratio 1.1 (1.0-2.2) TSH (0.34-5.60) uIU/mL Urine Color Urine Clarity (CLEAR) Urine pH (5.0-7.5) PH Ur Specific Hardwick (1.002-1.030) Urine Protein (NEGATIVE) mg/dL Urine Glucose (UA) (NEGATIVE) mg/dL Urine Ketones (NEGATIVE) mg/dL Urine Occult Blood (NEGATIVE) Urine Nitrite (NEGATIVE) Urine Bilirubin (NEGATIVE) Urine Urobilinogen (NORMAL) E.U./dL Ur Leukocyte Esterase (NEGATIVE) Urine RBC (0-5) /HPF Urine WBC (0-5) /HPF Ur Squamous Epith Cells (<= Few) Urine Bacteria (None Seen) /HPF Urine Culture Comments ABX Reporting Has patient been on IV antibiotics over the past 48 hours?: Yes Assessment/Plan - Problem List (1) Aortic stenosis Impression: An echocardiogram was completed due to prolonged bradycardia. The patient is found to have mild to moderate aortic stenosis and mild aortic regurg. Plan: Follow up will be recommended in 1-2 years via echocardiogram. (2) Aspiration pneumonia Impression: The patient had a chest x-ray upon admission that showed mild intersitial infiltrates, and the patient has a history of aspiration pneumonia. She also had and elevated WBC count of 14.6. A temp max of 38.2 and a productive cough. The patient has not required supplemental oxygen since shortly after admission , and her WBC count is normal. She has also been afebrile, but was found to have a slight temp upon admission. A swallowing evaluation was completed and they recommend thickened liquids. Plan: Continue IV antibiotics that were started by admitting MD, respiratory care, provide meals with 1:1 feeding and swallowing precautions, and monitor labs/VS. (3) Bipolar 1 disorder, depressed, mild Impression: The patient is prescribed zoloft for this at the max dose that has now been reduced due to the polypharmacy concerns. She has been chemically sedated for quite some time. Since being here the patient has not had any evidence of combativeness, sadness, or mood instability. Nursing staff reports that she seems to be enjoying conversations, and TV watching much more that other times. She appears peaceful and happy upon today's exam. Plan: Continue treatment and monitor overall well being. (4) Polypharmacy Impression: The patient came to the hospital with a medication list that contained 22+ medications. Sedating meds included trazodone, lamictal, zyprexa, depakote, and zoloft. All of which were at the max doses. The patient has had numerous bouts of pneumonia and UTIs and this is likely caused by so many sedating agents. She was also found to have very dry eyes, that required ointment. The ointment has been discontinued, and she remains of opthamalic drops for dryness. In addition, the patient was prescribed lactulose which is a RED flag of polypharmacy and is now discontinued. The patient continues to have improved moments of alertness. The patient will likely not be returning to her living arrangement, so these changes will hopefully be followed. Plan: Continue medications Depakote and Zoloft and monitor mental status. (5) Constipation Impression: The patient was found to be on a large combination of medications that have cholenergic side effects, which have been on hold or reduced. Given her seizure disorder and bipolar disorder, she will continue the depakote and zoloft. The patient likely has chronic constipation as a result of her numerous medications and was previously prescribed lactulose, which has been discontinued. She remains on a daily Mirralax. The patient has not been constipated while in the hospital. Plan: Continue to encourage activity and give stool softeners/laxatives as needed. Qualifiers: Constipation type: drug induced constipation Qualified Code(s): K59.03 - Drug induced constipation (6) Seizure disorder Impression: The patient has this listed in her history, but she does not recall ever having seizures. Her sister claims that her last seizure was when she was about 15 years old. Plan: Stop all other sedating drugs, monitor for evidence of seizure activity, and continue new reduced depakote dose. (7) Pulmonary hypertension Impression: An echocardiogram indicated pulmonary HTN by noting a PASP of 42 mmHg (normal is 25-30). She was started on Spironolactone 12.5mg daily, which will be titrated up before discharge. Plan: Continue medication and monitor respiratory status.
[2017-11-27] MEDS: DIVALPROEX DR 125 MG TABLET PO SCH (22:20)
[2017-11-28] MEDS: PIPERACILLIN/TAZOBACTAM 3.375 GM in SODIUM CHLORIDE 0.9% MINIBAG 100 ML IV SCH ×2 (01:10→08:56)
[2017-11-28] MEDS: SODIUM CHLORIDE FLUSH 0.9% 10 ML SYRINGE IVP SCH ×3 (01:11→08:58)
[2017-11-28] MEDS: SODIUM CHLORIDE FLUSH 0.9% 10 ML SYRINGE IVP PRN (02:57)
[2017-11-28] MEDS: ASPIRIN CHEW 81 MG TABLET PO SCH (08:57)
[2017-11-28] MEDS: ATORVASTATIN 40 MG TABLET PO SCH (08:57)
[2017-11-28] MEDS: NYSTATIN POWDER 15 GM TOP SCH (08:57)
[2017-11-28] MEDS: ENOXAPARIN 40 MG/0.4 ML SYRINGE SUBQ SCH (08:57)
[2017-11-28] MEDS: POLYETHYLENE GLYCOL 3350 17 GM PACKET PO SCH (08:57)
[2017-11-28] MEDS: DIVALPROEX DR 125 MG TABLET PO SCH (08:57)
--- NOTE | 2017-11-28 09:09 | Discharge Plan ---
Discharge Plan for SNF / [facility] - DC Plan and Transition Orders Disposition: 03 SNF DC/Xfer Condition: Good SNF Transition Orders: Admit to: [facility] under the care of Elly Blount Discharge Diagnosis: aspiration pneumonia, sepsis-ruled out, seizure disorder, UTI, drug induced subacute dyskinesia, bipolar disorder, chronic constipation, depression, pulmonary HTN, hypertension. Medicare Certification: I certify that [facility] care is medically necessary on a continuing basis for any of the conditions for which she/he is receiving care during hospitalization. Notify PCP of admission and forward orders to primary provider for signature. Weight on admission and Monthly. Call PCP immediately if weight increases by 10 pounds or if patient develops dyspnea, chest pain/tightness or edema. House Bowel Program: Yes If no BM after 2 days, nurse may give M.O.M. 30ml PO PRN and /or ducolax Supp 1 ME and /or TENZIN 250mg P.O., and/or senna 1-2 tabs PO. On day 3 nurse may give repeat above order until residents constipation is resolved. Immunizations: Annual Influenza Vaccine: Yes; (between Mar 18 and October 15 .) Unless allergy or already given Two-Step PPD: Yes; per [facility] [id number] or appropriate documentation of approved exceptions Treatments & Other Orders: Continue treatment for pneumonia, thickened liquids for meals. 1:1 supervision if indicated. Oxygen Orders: The patient has not required oxygen for the past several days. 1-2L per nasal cannula to keep oxygen saturation greater than 90%, PRN. Lab Tests or X-Rays Orders: Not indicated. A repeat swallow study may be helpful after her pneumonia clears up. Medications: PLEASE REFER TO THE DISCHARGE MEDICATION LIST. Insulin Orders? No Allergies and Adverse Reactions: Allergies Allergy/AdvReac Type Severity Reaction Status Date / Time diazepam Allergy Unknown Unknown Verified 11/23/17 22:57 hydrocodone Allergy Unknown Unknown Verified 11/23/17 22:57 lithium AdvReac Mild Unknown Verified 11/23/17 22:57 - Medications New Prescriptions: Divalproex ER [Depakote ER] 250 mg PO DAILY #30 tablet levoFLOXacin [Levofloxacin] 500 mg PO DAILY 10 Days #10 tablet Saccharomyces Boulardii [Florastor] 250 mg PO BID 20 Days #40 capsule Sertraline [Zoloft] 50 mg PO DAILY #30 tablet Spironolactone 25 mg PO DAILY #30 tablet
--- NOTE | 2017-11-28 09:28 | DISCHARGE SUMMARY ---
Discharge Summary Admit Date: 11/24/17 Discharge Date: 11/28/17 Discharging Provider: BRITTANEY Ko Primary Care Provider: Elly Blount Code Status: Do Not Attempt Resuscitation Condition at Discharge: Good Discharge Disposition: 03 SNF DC/Xfer Discharge Facility Name: [facility] - DIAGNOSES Admission Diagnoses: Sepsis, unspecified organism (A41.9) Encephalopathy, unspecified (G93.40) Unspecified foreign body in respiratory tract, part unspecified causing other injury, initial encounter (T17.908A) Tardive dyskinesia (G24.01) Polypharmacy (Z79.899) Bipolar depression (F31.30) Discharge Diagnoses with Status of Each Condition: Tardive dyskinesia (G24.01)-chronic, stable. Polypharmacy (Z79.899) chronic, now resolved. Bipolar depression (F31.30) -chronic, treatment to continue. Aspiration pneumonia (J69.0) new on this admit, care to continue. Dysphagia (R13.10) -ongoing swallow precautions, stable. Seizure disorder (G40.909)- chronic, stable. Chronic constipation (K59.09)-chronic, stable. - HPI History of Present Illness: Mackenzie Yanez is an ill-appearing, 72-year old white female with a past medical history of bipolor disorder, on multiple psychoactive meds, seizure disorder, HTN, COPD, pulmonary nodule since 10/2016, dyslipidemia, depression, anxiety, UTI, urinary incontinence, breast CA-post mastectomy. She presented to the ED and was noted by admitting MD to have no purposeful interactions, so her POA, sister Eliza was called for this HPI. She is under the care of Dr. Sandoval who manages her psychoactive meds. She has extrapyramidal side effects, manifesting as tardive dyskinesia. She resides at [facility]. The patient's sister reported that the last time that she saw her sister was a few days ago and was noted to be in her usual state of health. She could walk and talk as usual, although she did notice a cough. The patient has chronic constipation and was scheduled to have a colonoscopy for that next week. She was admitted last time to [facility] in July 2017, where she was treated for a respiratory illness. Per ED reports, the patient was brought in by EMS from [facility] with a chief complaint of fever and AMS. Per the facility personnel, she was more lethargic that usual, had a cough and was found to be slightly hypoxic with an oxygen saturation of 91% on room air. This presentation was suspicious for sepsis as her temp was 104 per EMS, she was tachycardic with a heart rate of 120, and given her AMS. She will be admitted for further treatment of PNA, with a swallowing evaluation, and a closer look at these numerous sedating, cholonergic medications. - HOSPITAL COURSE Hospital Course: The following diagnoses were prevalent during this hospital stay: (1) Polypharmacy The patient came to the hospital with a medication list that contained 22 medications. Sedating meds included trazodone, lamictal, zyprexa, depakote, and zoloft. All of which were at the max doses. The patient has had numerous bouts of pneumonia and UTIs and this is likely caused by so many sedating agents. She was also found to have such dry eyes, that required ointment. In addition, the patient is prescribed lactulose which is a RED flag of polypharmacy. (2) Pneumonia The patient had a chest x-ray upon admission that showed mild intersitial infiltrates, and the patient has a history of aspiration pneumonia. She also had and elevated WBC count of 14.6. A temp max of 38.2 and a productive cough.. (3) SIRS (systemic inflammatory response syndrome) This is now ruled out, as the patient had normal lactic acid values and her temperature is normalized. She continues to have a cough. Her blood pressure is not low. (4) Bipolar 1 disorder, depressed, mild The patient is prescribed zoloft for this at the max dose that will be reduced due to the polypharmacy complication in her life. She has been chemically sedated for quite some time. Since being here the patient has not had any evidence of combativeness, sadness, or mood instability. Her zoloft was titrated down as it was at the max dose as well. (5) Constipation The patient was found to be on a large combination of medications, which have been on hold or reduced. Given her seizure disorder, we will continue the depakote. The patient likely has chronic constipation as a result of her numerous medications. (6) Seizure disorder The patient has this listed in her history, but she does not recall ever having seizures. Her sister claims that her last seizure was when she was about 15 years old. (7) Urinary tract infection The patient has had UTIs in the past and is prescribed mirabegron for urinary incontinence. Discontinue as this has been contraindicated with its cholonergic properties. Disposition: The patient was instable condition and was transported without oxygen to SNF for short rehab. A large amount of medications have been discontinued as they no longer prove to be beneficial in light of the patient's repeat aspiration pneumonia episodes, falls and overall poor well-being. - ALLERGIES Allergies/Adverse Reactions: Allergies Allergy/AdvReac Type Severity Reaction Status Date / Time diazepam Allergy Unknown Unknown Verified 11/23/17 22:57 hydrocodone Allergy Unknown Unknown Verified 11/23/17 22:57 lithium AdvReac Mild Unknown Verified 11/23/17 22:57 - MEDICATIONS Home Medications: Ambulatory Orders Medication Instructions Recorded Confirmed Albuterol Sulfate [Proair Hfa 2 puffs INH Q4H PRN #1 inhaler 03/30/16 11/24/17 Inhaler] Atorvastatin Calcium [Lipitor] 40 mg PO DAILY 03/30/16 11/24/17 Ascorbic Acid [Vitamin C] 2,000 mg PO DAILY 11/01/16 11/24/17 Cranberry Fruit Concentrate 900 mg PO QPM 11/01/16 11/24/17 [Cranberry] Docusate Sodium 250Mg Capsule 250 - 500 mg PO DAILY #30 capsule 11/04/16 [Colace 250Mg Capsule] Polyethylene Glycol 3350 [Miralax] 17 gm PO DAILY #30 packet 11/04/16 11/24/17 Acetaminophen 500 mg PO Q4H PRN #30 11/28/17 11/24/17 Aspirin 81 mg PO DAILY #30 11/28/17 11/24/17 Divalproex ER [Depakote ER] 250 mg PO DAILY #30 tablet 11/28/17 Fluticasone/Salmeterol [Advair 1 puffs INH BID #1 11/28/17 11/24/17 250-50 Diskus] Ipratropium/Albuterol [Duoneb] 3 ml INH BID PRN #1 11/28/17 11/24/17 Saccharomyces Boulardii [Florastor] 250 mg PO BID 20 Days #40 capsule 11/28/17 Sertraline [Zoloft] 50 mg PO DAILY #30 tablet 11/28/17 Spironolactone 25 mg PO DAILY #30 tablet 11/28/17 levoFLOXacin [Levofloxacin] 500 mg PO DAILY 10 Days #10 tablet 11/28/17 - PHYSICAL EXAM AT DISCHARGE General Appearance: positive: No acute distress, Alert Eyes Bilateral: positive: Normal inspection, PERRL ENT: positive: ENT inspection nml, Pharynx nml, No signs of dehydration, Pharyngeal erythema Neck: positive: Nml inspection, Thyroid nml, No JVD, Trachea midline Respiratory: positive: Chest non-tender, No respiratory distress, Rhonchi Cardiovascular: positive: Regular rate & rhythm, No gallop, Systolic murmur, Decreased pulse(s) Peripheral Pulses: positive: 1+ Abdomen: positive: Non-tender, Nml bowel sounds, Other (obese, related to pulmonary HTN) Back: positive: Nml inspection Skin: positive: No rash, Warm, Dry, Pallor Extremities: positive: Non-tender, Full ROM, Pedal edema (mild), Joint swelling Neurologic/Psychiatric: positive: CN's nml (2-12), Motor nml, Sensation nml, Disoriented to time, Weakness, Sensory loss, Depressed mood/affect Reflexes: Bicep (R): 3+, Bicep (L): 3+ - LABS Result Diagrams: 11/27/17 05:30 11/27/17 05:30 - DIAGNOSTIC IMAGING Diagnostic Imaging Results: Final report reviewed Diagnostic Imaging Results Comments: Chest x-ray 11/23/17 for cough-final results: IMPRESSION 1. Rotated exam with mild cardiomegaly and possible pulmonary vascular congestion. 2. Mild interstitial infiltrate also possible. Echocardiogram-FINAL 1. Mild concentric LVH with normal systolic function and an EF of 70%. LA is mildly dilated. 2. Mild to moderate aortic stenosis with mild aortic regurg. 3. Mild pulmonary HTN with a PASP of 42 mmHg. 4. Consider repeat echo in 1-2 years. - FOLLOW UP Follow Up: Disposition: 03 SNF DC/Xfer Condition: Good SNF Transition Orders: Admit to: [facility] under the care of Elly Blount Discharge Diagnosis: aspiration pneumonia, sepsis-ruled out, seizure disorder, UTI, drug induced subacute dyskinesia, bipolar disorder, chronic constipation, depression, pulmonary HTN, hypertension. - TIME SPENT Time Spent in Discharge (Minutes): 60
[2017-11-28] MEDS ORDERED: SPIRONOLACTONE 25 MG TABLET PO SCH (10:00)
[2017-11-28 11:43] VITALS: BP 146/73
== END 2017-11-28 12:29 | DRG 871 ==
LOC: EDUNIT# → ED 22:50 → MS2 11-24 01:22
PROVIDERS: ADMIT Internal Medicine; ATTEND Nurse Practitioner
DX: J18.9 Pneumonia, unspecified organism (principal); F03.90 Unspecified dementia, unspecified severity, without behavioral disturbance, psychotic disturbance, mood disturbance, and anxiety; J44.0 Chronic obstructive pulmonary disease with (acute) lower respiratory infection; A41.9 Sepsis, unspecified organism; G93.40 Encephalopathy, unspecified; E78.00 Pure hypercholesterolemia, unspecified; F31.9 Bipolar disorder, unspecified; J69.0 Pneumonitis due to inhalation of food and vomit; F31.30 Bipolar disorder, current episode depressed, mild or moderate severity, unspecified; G24.01 Drug induced subacute dyskinesia; Z79.899 Other long term (current) drug therapy; G40.909 Epilepsy, unspecified, not intractable, without status epilepticus; K59.09 Other constipation; R13.10 Dysphagia, unspecified; I10 Essential (primary) hypertension; E78.5 Hyperlipidemia, unspecified; F41.9 Anxiety disorder, unspecified; R32 Unspecified urinary incontinence; Z85.3 Personal history of malignant neoplasm of breast; Z90.10 Acquired absence of unspecified breast and nipple; R91.1 Solitary pulmonary nodule; Z66 Do not resuscitate; Z79.82 Long term (current) use of aspirin; H10.9 Unspecified conjunctivitis; T43.95XA Adverse effect of unspecified psychotropic drug, initial encounter; J44.9 Chronic obstructive pulmonary disease, unspecified
CPT/HCPCS: 36415; 71045; 80053; 81001; 81003; 83036; 83605; 83690; 83735; 83880; 84443; 84484; 85025; 85651; 86140; 87040; 87086; 87275; 87276; 87640; 93005; 93306; 94640; 94667; 94668; 96365; 96367; 99284; 99291